=== PATIENT | male | born 1970 | race Two or more races ===

== ENCOUNTER 2016-08-28 12:42 | Emergency (ER) | payer MEDICARE ==
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
[2016-08-28 13:49] LABS: APPEARANCE,URINE CLOUDY; BILIRUBIN,URINE NEGATIVE (NEGATIVE); CALCIUM OXALATE CRYSTALS,URINE FEW /HPF; GLUCOSE, URINE NEGATIVE (NEGATIVE); KETONES,URINE NEGATIVE (NEGATIVE); LEUKOCYTE ESTERASE,URINE MODERATE (NEGATIVE); NITRITE,URINE POSITIVE (NEGATIVE); PROTEIN,URINE NEGATIVE (NEGATIVE)
[2016-08-28] MEDS ORDERED: CEFTRIAXONE INJ 1000 MG VIAL IM ONE (15:11)
[2016-08-28] MEDS ORDERED: LIDOCAINE 1% INJ-PF (10 MG/ML) 30 ML SDV INFIL ONE (15:11)
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
[2016-08-28 16:01] VITALS: BP 167/97
== END 2016-08-28 16:01 | disposition home or self-care (01) ==
LOC: ER 12:42
DX: T83.511A Infection and inflammatory reaction due to indwelling urethral catheter, initial encounter (principal); N39.0 Urinary tract infection, site not specified
CPT/HCPCS: 99283; 96372; 87086; 87088; 81001; 87186; J3490; J0696

== ENCOUNTER 2016-09-20 08:09 | Emergency (ER) | payer MEDICARE ==
[2016-09-20 09:23] LABS: APPEARANCE,URINE CLOUDY; BILIRUBIN,URINE NEGATIVE (NEGATIVE); GLUCOSE, URINE NEGATIVE (NEGATIVE); KETONES,URINE NEGATIVE (NEGATIVE); LEUKOCYTE ESTERASE,URINE SMALL (NEGATIVE); NITRITE,URINE POSITIVE (NEGATIVE); PROTEIN,URINE NEGATIVE (NEGATIVE); URINE SPECIFIC GRAVITY 1.018; UROBILINOGEN,URINE NEGATIVE mg/dL (<2.0)
[2016-09-20] MEDS ORDERED: SULFAMETHOXAZOLE/TRIMETHOPRIM 800-160 MG TABLET PO ONE (09:43)
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
[2016-09-20 10:00] VITALS: BP 120/72
== END 2016-09-20 09:50 | disposition home or self-care (01) ==
LOC: ER 08:09
DX: N39.0 Urinary tract infection, site not specified (principal); R39.198 Other difficulties with micturition; M54.5 Low back pain; R10.2 Pelvic and perineal pain; F17.200 Nicotine dependence, unspecified, uncomplicated
CPT/HCPCS: 99283; 87086; 87088; 81001; 87186; A9270

== ENCOUNTER 2016-12-15 10:48 | Emergency (ER) | payer MEDICARE ==
[2016-12-15] MEDS ORDERED: HYDROCODONE/ACETAMINOPHEN 5-325 MG TABLET PO ONE (11:51)
[2016-12-15] MEDS ORDERED: PHENAZOPYRIDINE HCL 200 MG TABLET PO ONE (11:51)
[2016-12-15] MEDS ORDERED: IBUPROFEN 600 MG TABLET PO ONE (11:51)
[2016-12-15] MEDS ORDERED: SULFAMETHOXAZOLE/TRIMETHOPRIM 800-160 MG TABLET PO ONE (11:51)
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
[2016-12-15 12:46] LABS: APPEARANCE,URINE CLOUDY; BILIRUBIN,URINE NEGATIVE (NEGATIVE); GLUCOSE, URINE NEGATIVE (NEGATIVE); KETONES,URINE NEGATIVE (NEGATIVE); LEUKOCYTE ESTERASE,URINE LARGE (NEGATIVE); NITRITE,URINE POSITIVE (NEGATIVE); PROTEIN,URINE 30 mg/dL (NEGATIVE); URINE SPECIFIC GRAVITY 1.019; UROBILINOGEN,URINE NEGATIVE mg/dL (<2.0)
[2016-12-15 13:11] VITALS: BP 136/91
== END 2016-12-15 13:07 | disposition home or self-care (01) ==
LOC: ER 10:48
DX: N39.0 Urinary tract infection, site not specified (principal); R10.9 Unspecified abdominal pain; Z93.3 Colostomy status; G82.20 Paraplegia, unspecified
CPT/HCPCS: 99284; 87086; 87088; 81001; 87186; A9270 ×4; J3490

== ENCOUNTER 2017-01-09 10:27 | Inpatient (IN) | payer MEDICARE, MEDICAID ==
[2017-01-09] MEDS ORDERED: PHENAZOPYRIDINE HCL 200 MG TABLET PO ONE (11:42)
[2017-01-09] MEDS ORDERED: KETOROLAC TROMETHAMINE INJ/PF 30 MG/1 ML SDV IV ONE (11:42)
[2017-01-09] MEDS ORDERED: CEFTAZIDIME INJ 1 GM VIAL IV ONE (11:42)
[2017-01-09] MEDS ORDERED: MORPHINE SULFATE 10 MG/ML INJ IV ONE (11:42)
[2017-01-09 11:47] LABS: APPEARANCE,URINE SLIGHTLY-CLOUDY; BILIRUBIN,URINE NEGATIVE (NEGATIVE); GLUCOSE, URINE NEGATIVE (NEGATIVE); KETONES,URINE NEGATIVE (NEGATIVE); LEUKOCYTE ESTERASE,URINE LARGE (NEGATIVE); NITRITE,URINE NEGATIVE (NEGATIVE); PROTEIN,URINE NEGATIVE (NEGATIVE); URINE SPECIFIC GRAVITY 1.017
[2017-01-09 13:10] LABS: HEMATOCRIT 20.3 % (37.9-51.0); MEAN CORPUSCULAR VOLUME 70 fl (80-97); RED BLOOD COUNT 2.91 10^6/uL (4.35-5.55); RED CELL DISTRIBUTION WIDTH 21.5 % (11.5-14.0); WHITE BLOOD COUNT 21.7 10^3/uL (4.0-10.5)
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
[2017-01-09 13:31] LABS: ALANINE AMINOTRANSFERASE 28 U/L (21-72); ALBUMIN 3.4 g/dL (3.5-5.0); ALKALINE PHOSPHATASE 66 U/L (38-126); ANION GAP 10 (5-19); ASPARTATE AMINO TRANSFERASE 33 U/L (17-59); BILIRUBIN,DIRECT 0.8 mg/dL (0.0-0.4); BILIRUBIN,TOTAL 1.7 mg/dL (0.2-1.3); BLOOD UREA NITROGEN 15 mg/dL (7-20); CALCIUM 8.1 mg/dL (8.4-10.2); CARBON DIOXIDE 21 mmol/L (22-30); CHLORIDE 106 mmol/L (98-107); CREATININE RESULT 0.74 mg/dL (0.52-1.25); GLUCOSE 101 mg/dL (75-110); POTASSIUM 4.8 mmol/L (3.6-5.0); SODIUM 136.8 mmol/L (137-145); TOTAL PROTEIN 6.3 g/dL (6.3-8.2)
[2017-01-09 13:41] LABS: HEMOGLOBIN 6.1 g/dL (13.5-17.0)
[2017-01-09] MEDS ORDERED: NORMAL SALINE 250 ML IV PRN (13:42)
[2017-01-09] MEDS ORDERED: NORMAL SALINE 1000 ML 1,000 ML IV ONE (13:43)
[2017-01-09 13:59] LABS: ANISOCYTOSIS 2+; BASOPHILS % (MANUAL) 0 % (0-2); EOSINOPHILS % (MANUAL) 3 % (0-6); HYPOCHROMASIA 2+; LYMPHOCYTES % (MANUAL) 32 % (13-45); MICROCYTOSIS 2+; OVALOCYTES 2+; POIKILOCYTOSIS 2+; POLYCHROMASIA SLIGHT; ROULEAUX SLIGHT; SCHISTOCYTES 1+; TOTAL CELLS COUNTED 100; TOXIC GRANULATION SLIGHT; TOXIC VACUOLATION PRESENT
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
[2017-01-09] MEDS: CEFTAZIDIME PENTAHYDRATE 1 GM in DEXTROSE 5%-WATER 50 ML IV SCH (23:39)
[2017-01-10] MEDS: GABAPENTIN 400 MG CAPSULE PO SCH ×5 (00:04→23:27)
[2017-01-10] MEDS: CEFTAZIDIME PENTAHYDRATE 1 GM in DEXTROSE 5%-WATER 50 ML IV SCH ×3 (06:00→21:24)
[2017-01-10 09:15] LABS: HEMATOCRIT 26.2 % (37.9-51.0); HEMOGLOBIN 8.1 g/dL (13.5-17.0); HGB HCT DIFFERENCE -1.9; MEAN CORPUSCULAR HEMOGLOBIN 22.9 pg (27.0-33.4); MEAN CORPUSCULAR HGB CONC 30.9 g/dL (32.0-36.0); RED BLOOD COUNT 3.53 10^6/uL (4.35-5.55); RED CELL DISTRIBUTION WIDTH 25.6 % (11.5-14.0); WHITE BLOOD COUNT 21.8 10^3/uL (4.0-10.5)
[2017-01-10 09:28] LABS: BASOPHILS % (MANUAL) 0 % (0-2); EOSINOPHILS % (MANUAL) 6 % (0-6); LYMPHOCYTES % (MANUAL) 38 % (13-45); NUCLEATED RED BLOOD CELLS 2 /100 WBC (0); TOTAL CELLS COUNTED 100
[2017-01-10 09:29] LABS: HYPOCHROMASIA 2+; MICROCYTOSIS 2+; OVALOCYTES SLIGHT; POIKILOCYTOSIS 2+
[2017-01-10 09:30] LABS: PLATELET CLUMPS PRESENT; POLYCHROMASIA SLIGHT; SCHISTOCYTES SLIGHT; TARGET CELLS SLIGHT; TEAR DROP CELLS SLIGHT
[2017-01-10 09:31] LABS: MEAN CORPUSCULAR VOLUME 74 fl (80-97)
--- NOTE | 2017-01-10 09:46 | PDOC PROGRESS REPORT ---
Subjective Progress Note for:: 01/10/17 Subjective:: No chest pain or difficulty with breathing. No fever or chills. No nausea or vomiting. Denied abdominal pain. Tolerating oral feeding. Patient reported that he is currently on Methadone 120 mg p.o daily and Gabapentin 800 mg p.o qid for chronic pain management. Physical Exam Vital Signs: Temp Pulse Resp BP Pulse Ox 98.5 F 84 16 118/58 L 100 01/09/17 23:43 01/09/17 23:43 01/09/17 23:43 01/09/17 23:43 01/09/17 23:43 Intake & Output 01/09/17 01/10/17 01/11/17 06:59 06:59 06:59 Intake Total 1165 Output Total 360 Balance 805 General appearance: PRESENT: no acute distress, cooperative Head exam: PRESENT: atraumatic, normocephalic Eye exam: PRESENT: conjunctiva pink, EOMI, PERRLA. ABSENT: scleral icterus Respiratory exam: PRESENT: clear to auscultation magda Cardiovascular exam: PRESENT: RRR, +S1, +S2 Vascular exam: PRESENT: normal capillary refill. ABSENT: pallor GI/Abdominal exam: PRESENT: normal bowel sounds, soft, other - functioning colostomy. ABSENT: distended, guarding, mass, organolmegaly, rebound, tenderness Gentrourinary exam: PRESENT: indwelling catheter Neurological exam: PRESENT: other - paraplegic Psychiatric exam: PRESENT: appropriate affect, normal mood. ABSENT: homicidal ideation, suicidal ideation Skin exam: PRESENT: dry, warm Results Laboratory Results: 01/10/17 08:50 Seg Neutrophils % Not Reportable Lymphocytes % Not Reportable Monocytes % Not Reportable Eosinophils % Not Reportable Basophils % Not Reportable Absolute Neutrophils Not Reportable Absolute Lymphocytes Not Reportable Absolute Monocytes Not Reportable Absolute Eosinophils Not Reportable Absolute Basophils Not Reportable Assessment & Plan - Diagnosis (1) UTI (urinary tract infection) Qualifiers: Urinary tract infection type: site unspecified Hematuria presence: with hematuria Qualified Code(s): N39.0 - Urinary tract infection, site not specified Plan: Maintain on IV ceftazidime coverage. Follow up on urine and blood culture findings. (2) Severe anemia Is this a current diagnosis for this admission?: YesPlan: Follow up on post transfusion CBC indices. (3) Paraplegic immobility syndrome Is this a current diagnosis for this admission?: YesPlan: Continue current supportive care. (4) Chronic pain syndrome Plan: Maintain on Gabapentin and Methadone management. Attempted to contact treatment center today but only available 7-9 am on Thursday and Thursday. Patient will receive stated dose of Methadone today and we will contact the center tomorrow morning for further confirmation. (5) Methadone maintenance therapy patient Is this a current diagnosis for this admission?: YesPlan: Attempted to contact treatment center today but only available 7-9 am on Thursday and Thursday. Patient will receive stated dose of Methadone today and we will contact the center tomorrow morning for further confirmation. - Time Time Spent with patient: 25-34 minutes Medications reviewed and adjusted accordingly: Yes Anticipated discharge: Home Within: Other - Inpatient Certification Based on my medical assessment, after consideration of the patient's comorbidities, presenting symptoms, or acuity I expect that the services needed warrant INPATIENT care.: Yes I certify that my determination is in accordance with my understanding of Medicare's requirements for reasonable and necessary INPATIENT services [42 CFR 412.3e].: Yes Medical Necessity: Need For IV Fluids, Need for IV Antibiotics, Risk of Complication if Not Cared For in Hospital Post Hospital Care: D/C Dietary Server Documentation - Plan Summary Plan Summary: Maintain on current medication management. Contacted his pharmacy and local Methadone clinic to confirm his stated dosages. Follow up on pending lab results. Follow up on blood and urine culture findings.
[2017-01-10] MEDS ORDERED: METHADONE HCL PO SCH (10:00)
[2017-01-10] MEDS ORDERED: AZTREONAM 1 GM in DEXTROSE 5%-WATER 50 ML IV SCH (10:00)
[2017-01-10] MEDS: METHADONE HCL 10 MG TABLET PO SCH (10:19)
[2017-01-10] MEDS ORDERED: AZTREONAM 1 GM in DEXTROSE 5%-WATER 50 ML IV ONE (11:00)
[2017-01-10] MEDS: AZTREONAM 1 GM in DEXTROSE 5%-WATER 50 ML IV SCH (17:18)
[2017-01-11] MEDS: AZTREONAM 1 GM in DEXTROSE 5%-WATER 50 ML IV SCH ×3 (04:09→17:27)
[2017-01-11] MEDS: GABAPENTIN 400 MG CAPSULE PO SCH ×4 (05:17→22:45)
[2017-01-11] MEDS: CEFTAZIDIME PENTAHYDRATE 1 GM in DEXTROSE 5%-WATER 50 ML IV SCH ×3 (05:17→21:25)
[2017-01-11] MEDS: METHADONE HCL 10 MG TABLET PO SCH (10:07)
--- NOTE | 2017-01-11 11:54 | PDOC PROGRESS REPORT ---
Subjective Progress Note for:: 01/11/17 Subjective:: No chest pain or difficulty with breathing. No fever or chills. No nausea or vomiting. Denied abdominal pain. Tolerating oral feeding. Physical Exam Vital Signs: Temp Pulse Resp BP Pulse Ox 98.3 F 88 20 110/65 97 01/11/17 07:43 01/11/17 07:43 01/11/17 07:43 01/11/17 07:43 01/11/17 07:43 Intake & Output 01/10/17 01/11/17 01/12/17 06:59 06:59 06:59 Intake Total 1165 1370 Output Total 360 1400 Balance 805 -30 Physical Exam: General appearance: PRESENT: no acute distress, cooperative Head exam: PRESENT: atraumatic, normocephalic Eye exam: PRESENT: conjunctiva pink, EOMI, PERRLA. ABSENT: scleral icterus Respiratory exam: PRESENT: clear to auscultation magda Cardiovascular exam: PRESENT: RRR, +S1, +S2 Vascular exam: PRESENT: normal capillary refill. ABSENT: pallor GI/Abdominal exam: PRESENT: normal bowel sounds, soft, other - functioning colostomy. ABSENT: distended, guarding, mass, organolmegaly, rebound, tenderness Gentrourinary exam: PRESENT: indwelling catheter Neurological exam: PRESENT: other - paraplegic Psychiatric exam: PRESENT: appropriate affect, normal mood. ABSENT: homicidal ideation, suicidal ideation Skin exam: PRESENT: dry, warm Results Laboratory Results: 01/10/17 08:50 Assessment & Plan - Diagnosis (1) UTI (urinary tract infection) Qualifiers: Urinary tract infection type: site unspecified Hematuria presence: with hematuria Qualified Code(s): N39.0 - Urinary tract infection, site not specified (2) Severe anemia Is this a current diagnosis for this admission?: Yes (3) Paraplegic immobility syndrome Is this a current diagnosis for this admission?: Yes (5) Methadone maintenance therapy patient Is this a current diagnosis for this admission?: Yes - Time Time Spent with patient: 25-34 minutes Medications reviewed and adjusted accordingly: Yes Anticipated discharge: Home Within: Other - Inpatient Certification Medical Necessity: Need Close Monitoring Due to Risk of Patient Decompensation, Need for IV Antibiotics, Risk of Complication if Not Cared For in Hospital Post Hospital Care: D/C Central Supply Technician Supervisor Documentation - Plan Summary Plan Summary: See covering attending orders.
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
[2017-01-12] MEDS: AZTREONAM 1 GM in DEXTROSE 5%-WATER 50 ML IV SCH ×3 (02:49→18:17)
[2017-01-12] MEDS: CEFTAZIDIME PENTAHYDRATE 1 GM in DEXTROSE 5%-WATER 50 ML IV SCH ×3 (05:09→21:22)
[2017-01-12] MEDS: GABAPENTIN 400 MG CAPSULE PO SCH ×4 (05:09→23:07)
[2017-01-12 05:30] LABS: HEMATOCRIT 23.5 % (37.9-51.0); HGB HCT DIFFERENCE -1.3; MEAN CORPUSCULAR HEMOGLOBIN 23.8 pg (27.0-33.4); MEAN CORPUSCULAR HGB CONC 31.6 g/dL (32.0-36.0); MEAN CORPUSCULAR VOLUME 75 fl (80-97); RED BLOOD COUNT 3.12 10^6/uL (4.35-5.55); RED CELL DISTRIBUTION WIDTH 26.2 % (11.5-14.0); WHITE BLOOD COUNT 22.7 10^3/uL (4.0-10.5)
[2017-01-12 05:52] LABS: HEMOGLOBIN 7.4 g/dL (13.5-17.0)
[2017-01-12 05:55] LABS: ALANINE AMINOTRANSFERASE 30 U/L (21-72); ALBUMIN 2.9 g/dL (3.5-5.0); ALKALINE PHOSPHATASE 75 U/L (38-126); ANION GAP 8 (5-19); ASPARTATE AMINO TRANSFERASE 44 U/L (17-59); BILIRUBIN,DIRECT 0.7 mg/dL (0.0-0.4); BILIRUBIN,TOTAL 1.2 mg/dL (0.2-1.3); BLOOD UREA NITROGEN 14 mg/dL (7-20); CALCIUM 8.4 mg/dL (8.4-10.2); CARBON DIOXIDE 23 mmol/L (22-30); CHLORIDE 107 mmol/L (98-107); CREATININE RESULT 0.63 mg/dL (0.52-1.25); GLUCOSE 90 mg/dL (75-110); POTASSIUM 4.7 mmol/L (3.6-5.0); SODIUM 138.1 mmol/L (137-145); TOTAL PROTEIN 5.8 g/dL (6.3-8.2)
[2017-01-12 06:03] LABS: BASOPHILS % (MANUAL) 0 % (0-2); EOSINOPHILS % (MANUAL) 7 % (0-6); LYMPHOCYTES % (MANUAL) 30 % (13-45); TOTAL CELLS COUNTED 100
[2017-01-12 06:25] LABS: ACANTHOCYTES SLIGHT; ANISOCYTOSIS 3+; HYPOCHROMASIA 2+; MICROCYTOSIS 1+; OVALOCYTES 1+; POIKILOCYTOSIS 3+; POLYCHROMASIA 1+
[2017-01-12] MEDS: METHADONE HCL 10 MG TABLET PO SCH (09:14)
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
--- NOTE | 2017-01-12 20:58 | PDOC PROGRESS REPORT ---
Subjective Progress Note for:: 01/12/17 Subjective:: Patient was seen by the bedside is sustained a fracture of the left femur, he was seen by orthopedic the plan is to manage conservatively Physical Exam Vital Signs: Temp Pulse Resp BP Pulse Ox 99.0 F 82 18 109/66 100 01/12/17 17:10 01/12/17 17:10 01/12/17 17:10 01/12/17 17:10 01/12/17 17:10 Intake & Output 01/11/17 01/12/17 01/13/17 06:59 06:59 06:59 Intake Total 1370 2160 1810 Output Total 1400 1100 900 Balance -30 1060 910 Weight 185 kg 84 kg General appearance: PRESENT: no acute distress Eye exam: PRESENT: PERRLA Respiratory exam: PRESENT: clear to auscultation magda Cardiovascular exam: PRESENT: +S1, +S2 GI/Abdominal exam: PRESENT: soft Neurological exam: PRESENT: alert, CN II-XII grossly intact Results Laboratory Results: 01/12/17 05:07 01/12/17 05:07 01/12/17 01/12/17 05:07 05:07 WBC 22.7 H RBC 3.12 L Hgb 7.4 L Hct 23.5 L MCV 75 L MCH 23.8 L MCHC 31.6 L RDW 26.2 H Plt Count 531 H Seg Neutrophils % Not Reportable Lymphocytes % Not Reportable Monocytes % Not Reportable Eosinophils % Not Reportable Basophils % Not Reportable Absolute Neutrophils Not Reportable Absolute Lymphocytes Not Reportable Absolute Monocytes Not Reportable Absolute Eosinophils Not Reportable Absolute Basophils Not Reportable Sodium 138.1 Potassium 4.7 Chloride 107 Carbon Dioxide 23 Anion Gap 8 BUN 14 Creatinine 0.63 Est GFR ( Amer) > 60 Est GFR (Non-Af Amer) > 60 Glucose 90 Calcium 8.4 Total Bilirubin 1.2 AST 44 ALT 30 Alkaline Phosphatase 75 Total Protein 5.8 L Albumin 2.9 L Impressions: Femur X-Ray 01/11/17 00:00 IMPRESSION: Fracture of the distal femur. Assessment & Plan - Diagnosis (1) Urinary tract infection Qualifiers: Urinary tract infection type: acute cystitis Hematuria presence: with hematuria Qualified Code(s): N30.01 - Acute cystitis with hematuria Is this a current diagnosis for this admission?: Yes (2) Severe anemia Is this a current diagnosis for this admission?: Yes - Plan Summary Plan Summary: Continue treatment
[2017-01-13] MEDS: AZTREONAM 1 GM in DEXTROSE 5%-WATER 50 ML IV SCH ×3 (01:13→17:56)
[2017-01-13] MEDS: CEFTAZIDIME PENTAHYDRATE 1 GM in DEXTROSE 5%-WATER 50 ML IV SCH ×3 (05:08→21:54)
[2017-01-13] MEDS: GABAPENTIN 400 MG CAPSULE PO SCH ×4 (05:08→23:20)
[2017-01-13] MEDS: METHADONE HCL 10 MG TABLET PO SCH (10:33)
--- NOTE | 2017-01-13 21:54 | PDOC PROGRESS REPORT ---
Subjective Progress Note for:: 01/13/17 Subjective:: Patient was seen by the bedside, he wants to go home tomorrow, the urine culture grew polymicrobial organisms, Proteus and enterococcus specie. The Proteus is not of significant colony count, the enterococcus is of significant colony count. Physical Exam Vital Signs: Temp Pulse Resp BP Pulse Ox 98.4 F 86 16 122/64 97 01/13/17 19:47 01/13/17 19:47 01/13/17 19:47 01/13/17 19:47 01/13/17 19:47 Intake & Output 01/12/17 01/13/17 01/14/17 06:59 06:59 06:59 Intake Total 2160 3250 1000 Output Total 1100 1800 600 Balance 1060 1450 400 Weight 185 kg 84 kg General appearance: PRESENT: no acute distress Eye exam: PRESENT: PERRLA Respiratory exam: PRESENT: clear to auscultation magda Cardiovascular exam: PRESENT: +S1, +S2 GI/Abdominal exam: PRESENT: soft Results Laboratory Results: 01/12/17 05:07 01/12/17 05:07 Impressions: Femur X-Ray 01/11/17 00:00 IMPRESSION: Fracture of the distal femur. Assessment & Plan - Diagnosis (1) Urinary tract infection Qualifiers: Urinary tract infection type: acute cystitis Hematuria presence: with hematuria Qualified Code(s): N30.01 - Acute cystitis with hematuria Is this a current diagnosis for this admission?: Yes (2) Severe anemia Is this a current diagnosis for this admission?: Yes (3) Chronic pain syndrome Is this a current diagnosis for this admission?: Yes (4) Closed fracture of left distal femur Qualifiers: Encounter type: initial encounter Is this a current diagnosis for this admission?: Yes (5) Methadone maintenance therapy patient Is this a current diagnosis for this admission?: Yes (6) Paraplegic immobility syndrome Is this a current diagnosis for this admission?: Yes
[2017-01-14] MEDS: AZTREONAM 1 GM in DEXTROSE 5%-WATER 50 ML IV SCH ×2 (02:09→09:24)
[2017-01-14] MEDS: GABAPENTIN 400 MG CAPSULE PO SCH ×2 (05:26→13:58)
[2017-01-14] MEDS: CEFTAZIDIME PENTAHYDRATE 1 GM in DEXTROSE 5%-WATER 50 ML IV SCH ×2 (05:26→13:59)
[2017-01-14] MEDS: METHADONE HCL 10 MG TABLET PO SCH (09:25)
[2017-01-14 14:20] LABS: ABSOLUTE BASOPHILS # (AUTO) 0.1 10^3/uL (0.0-0.2); ABSOLUTE LYMPHOCYTES (AUTO) 5.9 10^3/uL (0.5-4.7); ABSOLUTE MONOCYTES (AUTO) 1.7 10^3/uL (0.1-1.4); ABSOLUTE NEUT (AUTO) 9.4 10^3/uL (1.7-8.2); BASOPHILS % (AUTO) 0.7 % (0-2); EOSINOPHILS % (AUTO) 5.5 % (0-6); HEMATOCRIT 28.3 % (37.9-51.0); HEMOGLOBIN 8.9 g/dL (13.5-17.0); HGB HCT DIFFERENCE -1.6; LYMPHOCYTES % (AUTO) 32.5 % (13-45); MEAN CORPUSCULAR HEMOGLOBIN 24.5 pg (27.0-33.4); MEAN CORPUSCULAR HGB CONC 31.4 g/dL (32.0-36.0); MEAN CORPUSCULAR VOLUME 78 fl (80-97); MONOCYTES % (AUTO) 9.3 % (3-13); RED BLOOD COUNT 3.64 10^6/uL (4.35-5.55); RED CELL DISTRIBUTION WIDTH 26.5 % (11.5-14.0); WHITE BLOOD COUNT 18.1 10^3/uL (4.0-10.5)
[2017-01-14 14:32] LABS: ALANINE AMINOTRANSFERASE 35 U/L (21-72); ALBUMIN 3.2 g/dL (3.5-5.0); ALKALINE PHOSPHATASE 94 U/L (38-126); ANION GAP 13 (5-19); ASPARTATE AMINO TRANSFERASE 49 U/L (17-59); BILIRUBIN,DIRECT 0.7 mg/dL (0.0-0.4); BILIRUBIN,TOTAL 1.1 mg/dL (0.2-1.3); BLOOD UREA NITROGEN 15 mg/dL (7-20); CALCIUM 8.7 mg/dL (8.4-10.2); CARBON DIOXIDE 24 mmol/L (22-30); CHLORIDE 103 mmol/L (98-107); CREATININE RESULT 0.64 mg/dL (0.52-1.25); GLUCOSE 117 mg/dL (75-110); POTASSIUM 4.9 mmol/L (3.6-5.0); SODIUM 139.9 mmol/L (137-145); TOTAL PROTEIN 6.2 g/dL (6.3-8.2)
[2017-01-14 14:47] LABS: ANISOCYTOSIS 3+; HYPOCHROMASIA SLIGHT; MICROCYTOSIS SLIGHT; OVALOCYTES 1+; POIKILOCYTOSIS 1+; POLYCHROMASIA SLIGHT
[2017-01-14 14:48] LABS: TARGET CELLS SLIGHT
[2017-01-14 16:09] VITALS: BP 137/76
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
== END 2017-01-14 16:31 | disposition home or self-care (01) | DRG 690 ==
LOC: ER 10:27 → EH 13:51 → UNDOADMIN 13:51 → 5 15:05 → EH 15:05 → 5 15:44
PROVIDERS: ADMIT Internal Medicine; ATTEND Internal Medicine
PROC: 30233N1 Transfusion of Nonautologous Red Blood Cells into Peripheral Vein, Percutaneous Approach (ICD-10-PCS; principal; 2017-01-09)
DX: N30.01 Acute cystitis with hematuria (principal); S72.402A Unspecified fracture of lower end of left femur, initial encounter for closed fracture; G82.20 Paraplegia, unspecified; D62 Acute posthemorrhagic anemia; G89.4 Chronic pain syndrome; M85.80 Other specified disorders of bone density and structure, unspecified site; B95.2 Enterococcus as the cause of diseases classified elsewhere; W01.0XXA Fall on same level from slipping, tripping and stumbling without subsequent striking against object, initial encounter; Y92.009 Unspecified place in unspecified non-institutional (private) residence as the place of occurrence of the external cause; Z79.891 Long term (current) use of opiate analgesic; Z99.3 Dependence on wheelchair; Z93.3 Colostomy status; Z87.891 Personal history of nicotine dependence
CPT/HCPCS: 36415; 36430; 80053; 81001; 83605; 85025; 86850; 86900; 86901; 86920; 87040; 87086; 87088; 87186; 99284; J0713; J1885; J2270; J3490; J7030; J7050; L1830; P9016

== ENCOUNTER 2017-03-24 15:44 | Inpatient (IN) | payer MEDICARE, MEDICAID ==
[2017-03-24] MEDS ORDERED: PIPERACILLIN/TAZOBACTAM 4.5 GM VIAL IV ONE (17:31)
[2017-03-24] MEDS ORDERED: NORMAL SALINE 1000 ML 1,000 ML IV ONE (17:31)
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
[2017-03-24 18:09] LABS: ABSOLUTE BASOPHILS # (AUTO) 0.1 10^3/uL (0.0-0.2); ABSOLUTE EOSINOPHILS # (AUTO) 0.3 10^3/uL (0.0-0.6); ABSOLUTE LYMPHOCYTES (AUTO) 4.8 10^3/uL (0.5-4.7); ABSOLUTE MONOCYTES (AUTO) 1.7 10^3/uL (0.1-1.4); BASOPHILS % (AUTO) 0.6 % (0-2); EOSINOPHILS % (AUTO) 1.7 % (0-6); HEMATOCRIT 28.5 % (37.9-51.0); HEMOGLOBIN 8.9 g/dL (13.5-17.0); HGB HCT DIFFERENCE -1.8; LYMPHOCYTES % (AUTO) 24.3 % (13-45); MEAN CORPUSCULAR HEMOGLOBIN 26.5 pg (27.0-33.4); MEAN CORPUSCULAR HGB CONC 31.4 g/dL (32.0-36.0); MEAN CORPUSCULAR VOLUME 84 fl (80-97); MONOCYTES % (AUTO) 8.3 % (3-13); RED BLOOD COUNT 3.38 10^6/uL (4.35-5.55); RED CELL DISTRIBUTION WIDTH 20.7 % (11.5-14.0); SEGMENTED NEUTROPHILS % (AUTO) 65.1 % (42-78); WHITE BLOOD COUNT 19.9 10^3/uL (4.0-10.5)
[2017-03-24] MEDS ORDERED: VANCOMYCIN HCL INJ 1000 MG VIAL IV ONE (18:16)
[2017-03-24 18:25] LABS: ALANINE AMINOTRANSFERASE 52 U/L (21-72); ALBUMIN 3.4 g/dL (3.5-5.0); ALKALINE PHOSPHATASE 145 U/L (38-126); ANION GAP 13 (5-19); ASPARTATE AMINO TRANSFERASE 109 U/L (17-59); BILIRUBIN,TOTAL 1.4 mg/dL (0.2-1.3); BLOOD UREA NITROGEN 17 mg/dL (7-20); CALCIUM 8.7 mg/dL (8.4-10.2); CARBON DIOXIDE 23 mmol/L (22-30); CHLORIDE 107 mmol/L (98-107); CREATININE RESULT 0.63 mg/dL (0.52-1.25); GLUCOSE 80 mg/dL (75-110); POTASSIUM 4.6 mmol/L (3.6-5.0); SODIUM 142.9 mmol/L (137-145); TOTAL PROTEIN 7.8 g/dL (6.3-8.2)
[2017-03-24] MEDS ORDERED: ACETAMINOPHEN SUSP 160 MG/5 ML ORAL SYRING PO ONE (18:30)
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
--- NOTE | 2017-03-24 19:04 | RADIOLOGY REPORT (SQ) ---
EXAM DESCRIPTION: FEMUR LEFT COMPLETED DATE/TIME: 03/24/2017 6:53 pm REASON FOR STUDY: osteo, prior femur fracture COMPARISON: 01/11/2017 NUMBER OF VIEWS: Two views. TECHNIQUE: Two radiographic images acquired of the left femur to include hip and knee in at least on e projection. LIMITATIONS: None. FINDINGS: MINERALIZATION: Osteopenia. BONES: There is a comminuted fracture of the distal femur. There is soft tissue calcification around the fracture, but no bridging callus is seen. Considerable bone resorption is noted the distal frag ment. SOFT TISSUES: No obvious swelling or foreign body. OTHER: No other significant finding. IMPRESSION: Fracture of the distal femur as described. TECHNICAL DOCUMENTATION: JOB ID: [id number] [employer]- All Rights Reserved
--- NOTE | 2017-03-24 19:07 | RADIOLOGY REPORT (SQ) ---
EXAM DESCRIPTION: TIBIA FIBULA LEFT COMPLETED DATE/TIME: 03/24/2017 6:53 pm REASON FOR STUDY: osteo, prior femur fracture COMPARISON: None. NUMBER OF VIEWS: Two views. TECHNIQUE: Two radiographic images acquired of the left tibia and fibula to include the knee and ank le in at least one projection. LIMITATIONS: None. FINDINGS: MINERALIZATION: Osteopenia. BONES: No acute fracture or dislocation. No worrisome bone lesions. SOFT TISSUES: Extremely large soft tissue defect in the left lower extremity. No radiopaque foreign body. OTHER: No other significant finding. IMPRESSION: No acute fracture or radiopaque foreign body.No worrisome bone lesions. TECHNICAL DOCUMENTATION: JOB ID: [id number] [employer]- All Rights Reserved
--- NOTE | 2017-03-24 19:08 | RADIOLOGY REPORT (SQ) ---
EXAM DESCRIPTION: CHEST SINGLE VIEW COMPLETED DATE/TIME: 03/24/2017 6:53 pm REASON FOR STUDY: preop COMPARISON: 01/29/2014 EXAM PARAMETERS: NUMBER OF VIEWS: One view. TECHNIQUE: Single frontal radiographic view of the chest acquired. RADIATION DOSE: NA LIMITATIONS: None. FINDINGS: LUNGS AND PLEURA: No acute opacities, masses or pneumothorax. No pleural effusion. MEDIASTINUM AND HILAR STRUCTURES: No masses. Contour normal. HEART AND VASCULAR STRUCTURES: Heart normal in size. Normal vasculature. BONES: No acute findings. HARDWARE: None in the chest. OTHER: No other significant finding. IMPRESSION: NO ACUTE RADIOGRAPHIC FINDING IN THE CHEST. TECHNICAL DOCUMENTATION: JOB ID: [id number]
[2017-03-24 20:18] LABS: APPEARANCE,URINE TURBID; BILIRUBIN,URINE NEGATIVE (NEGATIVE); GLUCOSE, URINE NEGATIVE (NEGATIVE); KETONES,URINE NEGATIVE (NEGATIVE); LEUKOCYTE ESTERASE,URINE MODERATE (NEGATIVE); NITRITE,URINE NEGATIVE (NEGATIVE); PROTEIN,URINE 30 mg/dL (NEGATIVE); URINE SPECIFIC GRAVITY 1.025
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
[2017-03-24 21:18] LABS: VENOUS BLOOD PCO2 35.2 mmHg (35-63); VENOUS BLOOD PH 7.41 (7.30-7.42)
[2017-03-24] MEDS ORDERED: VANCOMYCIN HCL 0 MG in DEXTROSE 5%-WATER 250 ML IV NR (22:00)
[2017-03-24] MEDS ORDERED: GABAPENTIN 400 MG CAPSULE PO ONE (22:00)
[2017-03-24] MEDS ORDERED: METHADONE HCL PO SCH (22:00)
[2017-03-24 22:08] LABS: LIPASE 114.3 U/L (23-300); MAGNESIUM 1.8 mg/dL (1.6-2.3); PHOSPHORUS 3.5 mg/dL (2.5-4.5)
[2017-03-24 22:16] LABS: PROTHROMBIN TIME 16.4 SEC (11.4-15.4)
[2017-03-24 22:17] LABS: PARTIAL THROMBOPLASTIN TIME 43.7 SEC (23.5-35.8)
[2017-03-24 22:37] LABS: THYROID STIMULATING HORMONE 0.51 uIU/mL (0.47-4.68)
[2017-03-24 23:20] LABS: URINE BARBITURATES SCREEN NEGATIVE; URINE METHADONE SCREEN UNCONFIRMED POSITIVE; URINE OPIATES LOW NEGATIVE; URINE PHENCYCLIDINE SCREEN NEGATIVE
[2017-03-24 23:28] LABS: TROPONIN I < 0.012 ng/mL
[2017-03-25 00:01] LABS: ARTERIAL BLOOD BASE EXCESS -1.6 mmol/L; ARTERIAL BLOOD O2 SATURATION 94.6 % (94-98)
[2017-03-25] MEDS: PIPERACILLIN SODIUM/TAZOBACTAM 3.375 GM in NORMAL SALINE 100 ML IV SCH ×4 (02:14→18:30)
[2017-03-25] MEDS ORDERED: INFLUENZA ADLT QUAD (36MOS+) 2017-18 VAC 0.5 ML SYR IM PRN (03:59)
[2017-03-25] MEDS: NORMAL SALINE 1000 ML 1,000 ML IV PRN (04:17)
[2017-03-25] MEDS: VANCOMYCIN HCL 1,500 MG in DEXTROSE 5%-WATER 250 ML IV SCH ×3 (05:00→23:11)
[2017-03-25 05:04] LABS: ABSOLUTE EOSINOPHILS # (AUTO) 0.3 10^3/uL (0.0-0.6); ABSOLUTE LYMPHOCYTES (AUTO) 3.3 10^3/uL (0.5-4.7); ABSOLUTE MONOCYTES (AUTO) 1.8 10^3/uL (0.1-1.4); ABSOLUTE NEUT (AUTO) 11.4 10^3/uL (1.7-8.2); BASOPHILS % (AUTO) 0.2 % (0-2); EOSINOPHILS % (AUTO) 1.8 % (0-6); HEMATOCRIT 27.3 % (37.9-51.0); HEMOGLOBIN 8.4 g/dL (13.5-17.0); HGB HCT DIFFERENCE -2.1; LYMPHOCYTES % (AUTO) 19.8 % (13-45); MEAN CORPUSCULAR HEMOGLOBIN 26.1 pg (27.0-33.4); MEAN CORPUSCULAR HGB CONC 30.9 g/dL (32.0-36.0); MEAN CORPUSCULAR VOLUME 84 fl (80-97); MONOCYTES % (AUTO) 10.6 % (3-13); RED BLOOD COUNT 3.23 10^6/uL (4.35-5.55); RED CELL DISTRIBUTION WIDTH 20.4 % (11.5-14.0); SEGMENTED NEUTROPHILS % (AUTO) 67.6 % (42-78); WHITE BLOOD COUNT 16.9 10^3/uL (4.0-10.5)
[2017-03-25 05:23] LABS: ALANINE AMINOTRANSFERASE 52 U/L (21-72); ALKALINE PHOSPHATASE 136 U/L (38-126); ANION GAP 17 (5-19); ASPARTATE AMINO TRANSFERASE 91 U/L (17-59); BILIRUBIN,TOTAL 1.3 mg/dL (0.2-1.3); BLOOD UREA NITROGEN 16 mg/dL (7-20); CALCIUM 8.5 mg/dL (8.4-10.2); CARBON DIOXIDE 20 mmol/L (22-30); CHLORIDE 110 mmol/L (98-107); CHOLESTEROL 87.81 mg/dL (0-200); CREATININE RESULT 0.59 mg/dL (0.52-1.25); Direct HDL 11 mg/dL (>40); GLUCOSE 79 mg/dL (75-110); POTASSIUM 4.3 mmol/L (3.6-5.0); TOTAL PROTEIN 7.1 g/dL (6.3-8.2); TRIGLYCERIDES 102 mg/dL (<150)
[2017-03-25 05:33] LABS: DIRECT LDL 61 mg/dL (<100)
[2017-03-25 05:44] LABS: TROPONIN I < 0.012 ng/mL
[2017-03-25] MEDS: GABAPENTIN 400 MG CAPSULE PO SCH ×3 (06:28→18:30)
[2017-03-25] MEDS ORDERED: PIPERACILLIN/TAZOBACTAM 3.375 GM VIAL IV ONE (06:34)
[2017-03-25] MEDS ORDERED: NORMAL SALINE 250 ML IV PRN (06:46)
--- NOTE | 2017-03-25 08:06 | EKG REPORT ---
SEVERITY:- ABNORMAL ECG - SINUS RHYTHM MULTIFORM VENTRICULAR PREMATURE COMPLEXES BORDERLINE T ABNORMALITIES, ANTERIOR LEADS : Confirmed by: Carlos Grullon MD 25-Mar-2017 08:05:26
[2017-03-25] MEDS: METHADONE HCL 10 MG TABLET PO SCH (09:30)
[2017-03-25] MEDS ORDERED: ENOXAPARIN SODIUM INJ 40 MG/0.4 ML DISP.SYRIN SUBCUT SCH (10:00)
[2017-03-25 11:34] LABS: TROPONIN I < 0.012 ng/mL
--- NOTE | 2017-03-25 11:48 | PDOC PROGRESS REPORT ---
Subjective Progress Note for:: 03/25/17 Subjective:: No complaints. Tolerating blood transfusions well. Physical Exam Vital Signs: Temp Pulse Resp BP Pulse Ox 99.0 F 86 18 119/63 98 03/25/17 09:53 03/25/17 09:53 03/25/17 09:53 03/25/17 09:53 03/25/17 09:53 Intake & Output 03/24/17 03/25/17 03/26/17 06:59 06:59 06:59 Intake Total 315 0 Output Total 100 Balance 215 0 Weight 90.1 kg General appearance: PRESENT: no acute distress, cooperative Respiratory exam: PRESENT: clear to auscultation magda Cardiovascular exam: PRESENT: RRR Extremities exam: PRESENT: other - Left lower extremity with widespread tissue necrosis with exposed bone no erythema at the thigh nor at the knee nor immediately below the knee. No skin breaks on the thigh. Results Laboratory Results: 03/25/17 03:57 03/25/17 03:57 03/24/17 03/24/17 03/25/17 21:55 23:40 03:57 WBC 16.9 H RBC 3.23 L Hgb 8.4 L Hct 27.3 L MCV 84 MCH 26.1 L MCHC 30.9 L RDW 20.4 H Plt Count 652 H Seg Neutrophils % 67.6 Lymphocytes % 19.8 Monocytes % 10.6 Eosinophils % 1.8 Basophils % 0.2 Absolute Neutrophils 11.4 H Absolute Lymphocytes 3.3 Absolute Monocytes 1.8 H Absolute Eosinophils 0.3 Absolute Basophils 0.0 Carbonic Acid 1.09 HCO3/H2CO3 Ratio 20:1 ABG pH 7.42 ABG pCO2 36.2 ABG pO2 70.7 L ABG HCO3 22.7 ABG O2 Saturation 94.6 ABG Base Excess -1.6 FiO2 21% Sodium Potassium Chloride Carbon Dioxide Anion Gap BUN Creatinine Est GFR ( Amer) Est GFR (Non-Af Amer) Glucose Calcium Total Bilirubin AST ALT Alkaline Phosphatase Ammonia 22.0 Total Protein Albumin Triglycerides Cholesterol LDL Cholesterol Direct VLDL Cholesterol HDL Cholesterol 03/25/17 03:57 WBC RBC Hgb Hct MCV MCH MCHC RDW Plt Count Seg Neutrophils % Lymphocytes % Monocytes % Eosinophils % Basophils % Absolute Neutrophils Absolute Lymphocytes Absolute Monocytes Absolute Eosinophils Absolute Basophils Carbonic Acid HCO3/H2CO3 Ratio ABG pH ABG pCO2 ABG pO2 ABG HCO3 ABG O2 Saturation ABG Base Excess FiO2 Sodium 147.0 H Potassium 4.3 Chloride 110 H Carbon Dioxide 20 L Anion Gap 17 BUN 16 Creatinine 0.59 Est GFR ( Amer) > 60 Est GFR (Non-Af Amer) > 60 Glucose 79 Calcium 8.5 Total Bilirubin 1.3 AST 91 H ALT 52 Alkaline Phosphatase 136 H Ammonia Total Protein 7.1 Albumin 3.0 L Triglycerides 102 Cholesterol 87.81 LDL Cholesterol Direct 61 VLDL Cholesterol 20.0 HDL Cholesterol 11 L 03/25/17 03/25/17 03/25/17 03:57 03:57 10:15 Creatine Kinase 42 L 50 L CK-MB (CK-2) 1.20 Troponin I < 0.012 03/25/17 10:15 Creatine Kinase CK-MB (CK-2) 1.00 Troponin I < 0.012 Impressions: Femur X-Ray 03/24/17 18:15 IMPRESSION: Fracture of the distal femur as described. Tibia/Fibula X-Ray 03/24/17 18:15 IMPRESSION: No acute fracture or radiopaque foreign body.No worrisome bone lesions. Chest X-Ray 03/24/17 18:27 IMPRESSION: NO ACUTE RADIOGRAPHIC FINDING IN THE CHEST. Assessment & Plan - Diagnosis (1) leg gangrene Is this a current diagnosis for this admission?: Yes Plan: Involving the lower left leg. In a paraplegic patient. Patient also has a distal femur fracture. The best option for this patient is an [id number] amputation with amputation above the level of the femur fracture. I have discussed with the patient the risk and benefits of the procedure including risk of poor wound healing, infection, bleeding. Patient understands and agrees to proceed.
[2017-03-25] MEDS ORDERED: PROPOFOL INJ 200 MG/20 ML VIAL IV ONE (13:01)
[2017-03-25] MEDS ORDERED: MIDAZOLAM 2 MG/2 ML INJ ONE (13:01)
[2017-03-25] MEDS ORDERED: FENTANYL CITRATE INJ/PF 100 MCG/2 ML AMPUL ONE (13:01)
[2017-03-25] MEDS ORDERED: MORPHINE SULFATE 10 MG/ML INJ ONE ×2 (13:02→13:41)
[2017-03-25] MEDS ORDERED: MORPHINE SULFATE 10 MG/ML INJ IV PRN (13:39)
[2017-03-25] MEDS ORDERED: DIPHENHYDRAMINE HCL 50 MG/ML VIAL IV PRN (13:39)
[2017-03-25] MEDS ORDERED: PROMETHAZINE HCL INJ 25 MG/1 ML VIAL IV PRN (13:39)
[2017-03-25] MEDS ORDERED: FENTANYL CITRATE INJ/PF 100 MCG/2 ML AMPUL IV PRN ×3 (13:39)
[2017-03-25] MEDS ORDERED: MEPERIDINE HCL/PF INJ 25 MG/1 ML DISP.SYRIN IV PRN (13:39)
[2017-03-25] MEDS ORDERED: FENTANYL CITRATE INJ/PF 250 MCG/5 ML AMPULE ONE (13:41)
[2017-03-25] MEDS ORDERED: BUPIVACAINE HCL 0.25 % INJ/PF (2.5 MG/1 ML) 30 ML VIAL ONE (14:00)
[2017-03-25 15:02] LABS: HEMATOCRIT 20.5 % (37.9-51.0); MEAN CORPUSCULAR HEMOGLOBIN 26.9 pg (27.0-33.4); MEAN CORPUSCULAR HGB CONC 31.6 g/dL (32.0-36.0); MEAN CORPUSCULAR VOLUME 85 fl (80-97); RED BLOOD COUNT 2.41 10^6/uL (4.35-5.55); RED CELL DISTRIBUTION WIDTH 19.4 % (11.5-14.0); WHITE BLOOD COUNT 15.9 10^3/uL (4.0-10.5)
[2017-03-25 15:09] LABS: HEMOGLOBIN 6.5 g/dL (13.5-17.0)
[2017-03-25] MEDS ORDERED: ONDANSETRON HCL INJ/PF 4 MG/2 ML SDV IV PRN (17:20)
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
--- NOTE | 2017-03-25 17:46 | PDOC PROGRESS REPORT ---
Subjective Progress Note for:: 03/25/17 Subjective:: Patient had left AKA today, is back in the room, he has anemia will require blood transfusion Physical Exam Vital Signs: Temp Pulse Resp BP Pulse Ox 99.0 F 86 18 117/86 H 98 03/25/17 12:59 03/25/17 12:59 03/25/17 12:59 03/25/17 12:59 03/25/17 12:59 Intake & Output 03/24/17 03/25/17 03/26/17 06:59 06:59 06:59 Intake Total 315 2200 Output Total 100 1660 Balance 215 540 Weight 90.1 kg General appearance: PRESENT: no acute distress Eye exam: PRESENT: PERRLA Respiratory exam: PRESENT: clear to auscultation magda Cardiovascular exam: PRESENT: +S1, +S2 GI/Abdominal exam: PRESENT: soft Extremities exam: PRESENT: left AKA Neurological exam: PRESENT: alert, CN II-XII grossly intact Results Laboratory Results: 03/25/17 03:57 03/24/17 03/24/17 03/25/17 21:55 23:40 03:57 WBC 16.9 H RBC 3.23 L Hgb 8.4 L Hct 27.3 L MCV 84 MCH 26.1 L MCHC 30.9 L RDW 20.4 H Plt Count 652 H Seg Neutrophils % 67.6 Lymphocytes % 19.8 Monocytes % 10.6 Eosinophils % 1.8 Basophils % 0.2 Absolute Neutrophils 11.4 H Absolute Lymphocytes 3.3 Absolute Monocytes 1.8 H Absolute Eosinophils 0.3 Absolute Basophils 0.0 Carbonic Acid 1.09 HCO3/H2CO3 Ratio 20:1 ABG pH 7.42 ABG pCO2 36.2 ABG pO2 70.7 L ABG HCO3 22.7 ABG O2 Saturation 94.6 ABG Base Excess -1.6 FiO2 21% Sodium Potassium Chloride Carbon Dioxide Anion Gap BUN Creatinine Est GFR ( Amer) Est GFR (Non-Af Amer) Glucose Calcium Total Bilirubin AST ALT Alkaline Phosphatase Ammonia 22.0 Total Protein Albumin Triglycerides Cholesterol LDL Cholesterol Direct VLDL Cholesterol HDL Cholesterol 03/25/17 03/25/17 03:57 14:51 WBC 15.9 H RBC 2.41 L Hgb 6.5 L Hct 20.5 L MCV 85 MCH 26.9 L MCHC 31.6 L RDW 19.4 H Plt Count 491 H Seg Neutrophils % Lymphocytes % Monocytes % Eosinophils % Basophils % Absolute Neutrophils Absolute Lymphocytes Absolute Monocytes Absolute Eosinophils Absolute Basophils Carbonic Acid HCO3/H2CO3 Ratio ABG pH ABG pCO2 ABG pO2 ABG HCO3 ABG O2 Saturation ABG Base Excess FiO2 Sodium 147.0 H Potassium 4.3 Chloride 110 H Carbon Dioxide 20 L Anion Gap 17 BUN 16 Creatinine 0.59 Est GFR ( Amer) > 60 Est GFR (Non-Af Amer) > 60 Glucose 79 Calcium 8.5 Total Bilirubin 1.3 AST 91 H ALT 52 Alkaline Phosphatase 136 H Ammonia Total Protein 7.1 Albumin 3.0 L Triglycerides 102 Cholesterol 87.81 LDL Cholesterol Direct 61 VLDL Cholesterol 20.0 HDL Cholesterol 11 L 03/25/17 03/25/17 03/25/17 03:57 03:57 10:15 Creatine Kinase 42 L 50 L CK-MB (CK-2) 1.20 Troponin I < 0.012 03/25/17 10:15 Creatine Kinase CK-MB (CK-2) 1.00 Troponin I < 0.012 Impressions: Femur X-Ray 03/24/17 18:15 IMPRESSION: Fracture of the distal femur as described. Tibia/Fibula X-Ray 03/24/17 18:15 IMPRESSION: No acute fracture or radiopaque foreign body.No worrisome bone lesions. Chest X-Ray 03/24/17 18:27 IMPRESSION: NO ACUTE RADIOGRAPHIC FINDING IN THE CHEST. Assessment & Plan - Diagnosis (1) Gangrene of lower extremity Is this a current diagnosis for this admission?: Yes (2) Sepsis Qualifiers: Sepsis type: sepsis due to unspecified organism Qualified Code(s): A41.9 - Sepsis, unspecified organism Is this a current diagnosis for this admission?: Yes (3) Paraplegia Is this a current diagnosis for this admission?: Yes (4) Methadone maintenance therapy patient Is this a current diagnosis for this admission?: Yes - Plan Summary Plan Summary: Continue IV antibiotic
[2017-03-25 18:01] LABS: HEMATOCRIT 22.5 % (37.9-51.0); HGB HCT DIFFERENCE -0.6; MEAN CORPUSCULAR HEMOGLOBIN 27.6 pg (27.0-33.4); MEAN CORPUSCULAR HGB CONC 32.6 g/dL (32.0-36.0); MEAN CORPUSCULAR VOLUME 85 fl (80-97); RED BLOOD COUNT 2.66 10^6/uL (4.35-5.55); WHITE BLOOD COUNT 16.7 10^3/uL (4.0-10.5)
[2017-03-25 18:08] LABS: HEMOGLOBIN 7.3 g/dL (13.5-17.0)
--- NOTE | 2017-03-25 20:00 | PDOC PROGRESS REPORT ---
Subjective Progress Note for:: 03/25/17 Subjective:: Feels okay. No chest pain no lightheadedness Physical Exam Vital Signs: Temp Pulse Resp BP Pulse Ox 98.5 F 83 18 113/71 100 03/25/17 19:36 03/25/17 19:36 03/25/17 19:36 03/25/17 19:36 03/25/17 19:36 Intake & Output 03/24/17 03/25/17 03/26/17 06:59 06:59 06:59 Intake Total 315 5550 Output Total 100 2585 Balance 215 2965 Weight 90.1 kg General appearance: PRESENT: no acute distress, cooperative Respiratory exam: PRESENT: clear to auscultation magda Cardiovascular exam: PRESENT: RRR Extremities exam: PRESENT: other - Stump dressing intact. Drain is blood- tinged output. Results Laboratory Results: 03/25/17 17:37 03/25/17 03:57 03/24/17 03/24/17 03/25/17 21:55 23:40 03:57 WBC 16.9 H RBC 3.23 L Hgb 8.4 L Hct 27.3 L MCV 84 MCH 26.1 L MCHC 30.9 L RDW 20.4 H Plt Count 652 H Seg Neutrophils % 67.6 Lymphocytes % 19.8 Monocytes % 10.6 Eosinophils % 1.8 Basophils % 0.2 Absolute Neutrophils 11.4 H Absolute Lymphocytes 3.3 Absolute Monocytes 1.8 H Absolute Eosinophils 0.3 Absolute Basophils 0.0 Carbonic Acid 1.09 HCO3/H2CO3 Ratio 20:1 ABG pH 7.42 ABG pCO2 36.2 ABG pO2 70.7 L ABG HCO3 22.7 ABG O2 Saturation 94.6 ABG Base Excess -1.6 FiO2 21% Sodium Potassium Chloride Carbon Dioxide Anion Gap BUN Creatinine Est GFR ( Amer) Est GFR (Non-Af Amer) Glucose Calcium Total Bilirubin AST ALT Alkaline Phosphatase Ammonia 22.0 Total Protein Albumin Triglycerides Cholesterol LDL Cholesterol Direct VLDL Cholesterol HDL Cholesterol 03/25/17 03/25/17 03/25/17 03:57 14:51 17:37 WBC 15.9 H 16.7 H RBC 2.41 L 2.66 L Hgb 6.5 L 7.3 L Hct 20.5 L 22.5 L MCV 85 85 MCH 26.9 L 27.6 MCHC 31.6 L 32.6 RDW 19.4 H 18.0 H Plt Count 491 H 452 H Seg Neutrophils % Lymphocytes % Monocytes % Eosinophils % Basophils % Absolute Neutrophils Absolute Lymphocytes Absolute Monocytes Absolute Eosinophils Absolute Basophils Carbonic Acid HCO3/H2CO3 Ratio ABG pH ABG pCO2 ABG pO2 ABG HCO3 ABG O2 Saturation ABG Base Excess FiO2 Sodium 147.0 H Potassium 4.3 Chloride 110 H Carbon Dioxide 20 L Anion Gap 17 BUN 16 Creatinine 0.59 Est GFR ( Amer) > 60 Est GFR (Non-Af Amer) > 60 Glucose 79 Calcium 8.5 Total Bilirubin 1.3 AST 91 H ALT 52 Alkaline Phosphatase 136 H Ammonia Total Protein 7.1 Albumin 3.0 L Triglycerides 102 Cholesterol 87.81 LDL Cholesterol Direct 61 VLDL Cholesterol 20.0 HDL Cholesterol 11 L 03/25/17 03/25/17 03/25/17 03:57 03:57 10:15 Creatine Kinase 42 L 50 L CK-MB (CK-2) 1.20 Troponin I < 0.012 03/25/17 10:15 Creatine Kinase CK-MB (CK-2) 1.00 Troponin I < 0.012 Impressions: Femur X-Ray 03/24/17 18:15 IMPRESSION: Fracture of the distal femur as described. Tibia/Fibula X-Ray 03/24/17 18:15 IMPRESSION: No acute fracture or radiopaque foreign body.No worrisome bone lesions. Chest X-Ray 03/24/17 18:27 IMPRESSION: NO ACUTE RADIOGRAPHIC FINDING IN THE CHEST. Assessment & Plan - Diagnosis (1) leg gangrene Is this a current diagnosis for this admission?: Yes Plan: Status post [id number] amputation. Intraoperative blood loss. Patient looks good otherwise. Getting transfused further tonight.
[2017-03-26] MEDS: GABAPENTIN 400 MG CAPSULE PO SCH ×4 (01:01→17:04)
[2017-03-26] MEDS: PIPERACILLIN SODIUM/TAZOBACTAM 3.375 GM in NORMAL SALINE 100 ML IV SCH ×4 (01:01→17:04)
[2017-03-26 06:37] LABS: ABSOLUTE BASOPHILS # (AUTO) 0.1 10^3/uL (0.0-0.2); ABSOLUTE EOSINOPHILS # (AUTO) 0.4 10^3/uL (0.0-0.6); ABSOLUTE LYMPHOCYTES (AUTO) 4.8 10^3/uL (0.5-4.7); ABSOLUTE MONOCYTES (AUTO) 1.8 10^3/uL (0.1-1.4); ABSOLUTE NEUT (AUTO) 11.8 10^3/uL (1.7-8.2); BASOPHILS % (AUTO) 0.4 % (0-2); HEMATOCRIT 29.7 % (37.9-51.0); LYMPHOCYTES % (AUTO) 25.4 % (13-45); MEAN CORPUSCULAR HEMOGLOBIN 28.6 pg (27.0-33.4); MEAN CORPUSCULAR HGB CONC 33.3 g/dL (32.0-36.0); MEAN CORPUSCULAR VOLUME 86 fl (80-97); MONOCYTES % (AUTO) 9.8 % (3-13); RED BLOOD COUNT 3.46 10^6/uL (4.35-5.55); RED CELL DISTRIBUTION WIDTH 16.7 % (11.5-14.0); SEGMENTED NEUTROPHILS % (AUTO) 62.4 % (42-78); WHITE BLOOD COUNT 18.8 10^3/uL (4.0-10.5)
[2017-03-26 06:40] LABS: ALANINE AMINOTRANSFERASE 40 U/L (21-72); ALBUMIN 2.1 g/dL (3.5-5.0); ALKALINE PHOSPHATASE 86 U/L (38-126); ANION GAP 11 (5-19); ASPARTATE AMINO TRANSFERASE 55 U/L (17-59); BILIRUBIN,DIRECT 0.8 mg/dL (0.0-0.4); BILIRUBIN,TOTAL 1.2 mg/dL (0.2-1.3); BLOOD UREA NITROGEN 18 mg/dL (7-20); CALCIUM 7.5 mg/dL (8.4-10.2); CARBON DIOXIDE 18 mmol/L (22-30); CHLORIDE 112 mmol/L (98-107); CREATININE RESULT 1.69 mg/dL (0.52-1.25); GLUCOSE 77 mg/dL (75-110); POTASSIUM 4.1 mmol/L (3.6-5.0); SODIUM 140.7 mmol/L (137-145); TOTAL PROTEIN 5.3 g/dL (6.3-8.2)
[2017-03-26 06:51] LABS: HEMOGLOBIN 9.9 g/dL (13.5-17.0)
[2017-03-26] MEDS: MORPHINE SULFATE 10 MG/ML INJ IV PRN (08:31)
[2017-03-26] MEDS: METHADONE HCL 10 MG TABLET PO SCH (09:38)
[2017-03-26] MEDS: ENOXAPARIN SODIUM INJ 30 MG/0.3 ML DISP.SYRIN SUBCUT SCH (09:42)
[2017-03-26] MEDS ORDERED: INFLUENZA ADLT QUAD (36MOS+) 2017-18 VAC 0.5 ML SYR IM PRN (10:00)
[2017-03-26] MEDS ORDERED: ONDANSETRON HCL INJ/PF 4 MG/2 ML SDV IV PRN (10:00)
[2017-03-26] MEDS: VANCOMYCIN HCL 1,500 MG in DEXTROSE 5%-WATER 250 ML IV SCH (12:35)
--- NOTE | 2017-03-26 14:05 | Physician Advisory Note ---
Physician Advisor ProgressNote .: Pursuant to the plan for [facility], I have reviewed the medical record for this patient. Physician Advisor Statement: Nice documentation of paraplegia & methadone dependence. Please consider documenting, if you agree: 1. "possible sepsis due to leg ulcer, evidenced by leukocytosis & , ruled out/in" Need to state criteria used to dx sepsis explicitly in chart or this dx will be denied - or else state "sepsis dx was considered & ruled out". - This reviewer doesn't find more than 1 of either Sepsis-2 or Sepsis-3 criteria in this case .... 2. ? - "Anemia of acute blood loss due to leg ulcer, transfused" 3. "anemia of chronic ____" [Fe defic from chronic blood loss from ___, or nutritional Fe defic, or ...?] 4. "Acute hypernatremia, likely due to ____, resolved" Thanks! CK
--- NOTE | 2017-03-26 17:32 | PDOC PROGRESS REPORT ---
Subjective Progress Note for:: 03/26/17 Subjective:: Pains in left AKA site Physical Exam Vital Signs: Temp Pulse Resp BP Pulse Ox 99.1 F 82 19 117/68 100 03/26/17 15:46 03/26/17 15:46 03/26/17 15:46 03/26/17 15:46 03/26/17 15:46 Intake & Output 03/25/17 03/26/17 03/27/17 06:59 06:59 06:59 Intake Total 315 6900 458 Output Total 100 2885 160 Balance 215 4015 298 Weight 90.1 kg 81.6 kg Exam: Dressings in place. CHAS drained at least 50 cc when seen this morning. Drainage is blood tinge Results Laboratory Results: 03/26/17 06:11 03/26/17 06:11 03/25/17 03/26/17 03/26/17 17:37 06:11 06:11 WBC 16.7 H 18.8 H RBC 2.66 L 3.46 L Hgb 7.3 L 9.9 L D Hct 22.5 L 29.7 L MCV 85 86 MCH 27.6 28.6 MCHC 32.6 33.3 RDW 18.0 H 16.7 H Plt Count 452 H 440 Seg Neutrophils % 62.4 Lymphocytes % 25.4 Monocytes % 9.8 Eosinophils % 2.0 Basophils % 0.4 Absolute Neutrophils 11.8 H Absolute Lymphocytes 4.8 H Absolute Monocytes 1.8 H Absolute Eosinophils 0.4 Absolute Basophils 0.1 Sodium 140.7 Potassium 4.1 Chloride 112 H Carbon Dioxide 18 L Anion Gap 11 BUN 18 Creatinine 1.69 H Est GFR ( Amer) 53 L Est GFR (Non-Af Amer) 44 L Glucose 77 Calcium 7.5 L Total Bilirubin 1.2 AST 55 ALT 40 Alkaline Phosphatase 86 Total Protein 5.3 L Albumin 2.1 L 03/25/17 03/25/17 03/25/17 03:57 03:57 10:15 Creatine Kinase 42 L 50 L CK-MB (CK-2) 1.20 Troponin I < 0.012 03/25/17 10:15 Creatine Kinase CK-MB (CK-2) 1.00 Troponin I < 0.012 Impressions: Femur X-Ray 03/24/17 18:15 IMPRESSION: Fracture of the distal femur as described. Tibia/Fibula X-Ray 03/24/17 18:15 IMPRESSION: No acute fracture or radiopaque foreign body.No worrisome bone lesions. Chest X-Ray 03/24/17 18:27 IMPRESSION: NO ACUTE RADIOGRAPHIC FINDING IN THE CHEST. Assessment & Plan - Time Time Spent with patient: 15-24 minutes - Inpatient Certification Based on my medical assessment, after consideration of the patient's comorbidities, presenting symptoms, or acuity I expect that the services needed warrant INPATIENT care.: Yes I certify that my determination is in accordance with my understanding of Medicare's requirements for reasonable and necessary INPATIENT services [42 CFR 412.3e].: Yes Medical Necessity: Need for Pain Control, Need for IV Antibiotics - Plan Summary Plan Summary: Continue on type antibiotics Monitor white count and H&H Pain management
[2017-03-26] MEDS ORDERED: FUROSEMIDE INJ/PF 40 MG/4 ML SDV IV ONE (18:15)
--- NOTE | 2017-03-26 20:59 | PDOC PROGRESS REPORT ---
Subjective Progress Note for:: 03/26/17 Subjective:: Patient status post AKA of left leg on IV antibiotic, he was seen by the bedside , is depressed is upset as expected Physical Exam Vital Signs: Temp Pulse Resp BP Pulse Ox 99.1 F 82 19 117/68 100 03/26/17 15:46 03/26/17 15:46 03/26/17 15:46 03/26/17 15:46 03/26/17 15:46 Intake & Output 03/25/17 03/26/17 03/27/17 06:59 06:59 06:59 Intake Total 315 6900 1960 Output Total 100 2885 365 Balance 215 4015 1595 Weight 90.1 kg 81.6 kg General appearance: PRESENT: no acute distress Eye exam: PRESENT: PERRLA Respiratory exam: PRESENT: clear to auscultation magda Cardiovascular exam: PRESENT: +S1, +S2 GI/Abdominal exam: PRESENT: soft Neurological exam: PRESENT: alert Results Laboratory Results: 03/26/17 06:11 03/26/17 06:11 03/26/17 03/26/17 06:11 06:11 WBC 18.8 H RBC 3.46 L Hgb 9.9 L D Hct 29.7 L MCV 86 MCH 28.6 MCHC 33.3 RDW 16.7 H Plt Count 440 Seg Neutrophils % 62.4 Lymphocytes % 25.4 Monocytes % 9.8 Eosinophils % 2.0 Basophils % 0.4 Absolute Neutrophils 11.8 H Absolute Lymphocytes 4.8 H Absolute Monocytes 1.8 H Absolute Eosinophils 0.4 Absolute Basophils 0.1 Sodium 140.7 Potassium 4.1 Chloride 112 H Carbon Dioxide 18 L Anion Gap 11 BUN 18 Creatinine 1.69 H Est GFR ( Amer) 53 L Est GFR (Non-Af Amer) 44 L Glucose 77 Calcium 7.5 L Total Bilirubin 1.2 AST 55 ALT 40 Alkaline Phosphatase 86 Total Protein 5.3 L Albumin 2.1 L 03/25/17 03/25/17 03/25/17 03:57 03:57 10:15 Creatine Kinase 42 L 50 L CK-MB (CK-2) 1.20 Troponin I < 0.012 03/25/17 10:15 Creatine Kinase CK-MB (CK-2) 1.00 Troponin I < 0.012 Impressions: Femur X-Ray 10/10/17 18:15 IMPRESSION: Fracture of the distal femur as described. Tibia/Fibula X-Ray 03/24/17 18:15 IMPRESSION: No acute fracture or radiopaque foreign body.No worrisome bone lesions. Chest X-Ray 03/24/17 18:27 IMPRESSION: NO ACUTE RADIOGRAPHIC FINDING IN THE CHEST. Assessment & Plan - Diagnosis (1) Gangrene of lower extremity Is this a current diagnosis for this admission?: Yes (2) Sepsis Qualifiers: Sepsis type: sepsis due to unspecified organism Qualified Code(s): A41.9 - Sepsis, unspecified organism Is this a current diagnosis for this admission?: Yes (3) Paraplegia Is this a current diagnosis for this admission?: Yes (4) Methadone maintenance therapy patient Is this a current diagnosis for this admission?: Yes
[2017-03-27] MEDS: PIPERACILLIN SODIUM/TAZOBACTAM 3.375 GM in NORMAL SALINE 100 ML IV SCH ×3 (00:36→11:33)
[2017-03-27] MEDS: GABAPENTIN 400 MG CAPSULE PO SCH ×5 (00:36→23:25)
[2017-03-27] MEDS: NORMAL SALINE 1000 ML 1,000 ML IV PRN ×2 (04:53→20:14)
[2017-03-27 05:28] LABS: ABSOLUTE BASOPHILS # (AUTO) 0.1 10^3/uL (0.0-0.2); ABSOLUTE EOSINOPHILS # (AUTO) 0.6 10^3/uL (0.0-0.6); ABSOLUTE LYMPHOCYTES (AUTO) 5.5 10^3/uL (0.5-4.7); ABSOLUTE NEUT (AUTO) 11.2 10^3/uL (1.7-8.2); BASOPHILS % (AUTO) 0.4 % (0-2); EOSINOPHILS % (AUTO) 3.2 % (0-6); HEMATOCRIT 27.5 % (37.9-51.0); HEMOGLOBIN 8.9 g/dL (13.5-17.0); HGB HCT DIFFERENCE -0.8; LYMPHOCYTES % (AUTO) 28.2 % (13-45); MEAN CORPUSCULAR HEMOGLOBIN 28.1 pg (27.0-33.4); MEAN CORPUSCULAR HGB CONC 32.5 g/dL (32.0-36.0); MEAN CORPUSCULAR VOLUME 87 fl (80-97); MONOCYTES % (AUTO) 10.5 % (3-13); RED BLOOD COUNT 3.18 10^6/uL (4.35-5.55); RED CELL DISTRIBUTION WIDTH 17.2 % (11.5-14.0); SEGMENTED NEUTROPHILS % (AUTO) 57.7 % (42-78); WHITE BLOOD COUNT 19.5 10^3/uL (4.0-10.5)
[2017-03-27 05:43] LABS: ALANINE AMINOTRANSFERASE 37 U/L (21-72); ALBUMIN 2.1 g/dL (3.5-5.0); ALKALINE PHOSPHATASE 77 U/L (38-126); ANION GAP 13 (5-19); ASPARTATE AMINO TRANSFERASE 53 U/L (17-59); BILIRUBIN,DIRECT 0.7 mg/dL (0.0-0.4); BILIRUBIN,TOTAL 0.7 mg/dL (0.2-1.3); BLOOD UREA NITROGEN 25 mg/dL (7-20); CALCIUM 7.8 mg/dL (8.4-10.2); CARBON DIOXIDE 17 mmol/L (22-30); CHLORIDE 111 mmol/L (98-107); CREATININE RESULT 3.33 mg/dL (0.52-1.25); GLUCOSE 93 mg/dL (75-110); POTASSIUM 4.2 mmol/L (3.6-5.0); SODIUM 140.6 mmol/L (137-145); TOTAL PROTEIN 5.2 g/dL (6.3-8.2)
[2017-03-27] MEDS: METHADONE HCL 10 MG TABLET PO SCH (09:21)
[2017-03-27] MEDS: ENOXAPARIN SODIUM INJ 30 MG/0.3 ML DISP.SYRIN SUBCUT SCH (09:29)
--- NOTE | 2017-03-27 16:14 | PDOC PROGRESS REPORT ---
Subjective Progress Note for:: 03/27/17 Subjective:: Still with pains along the left AKA stump Physical Exam Vital Signs: Temp Pulse Resp BP Pulse Ox 98.0 F 79 18 108/69 100 03/27/17 12:34 03/27/17 12:34 03/27/17 12:34 03/27/17 12:34 03/27/17 12:34 Intake & Output 03/26/17 03/27/17 03/28/17 06:59 06:59 06:59 Intake Total 6900 4320 358 Output Total 2885 715 Balance 4015 3605 358 Weight 81.6 kg 85.2 kg Exam: Left AKA stump dressing is dry but the thigh appears to be somewhat swollen. CHAS drain about 65 cc of serosanguineous fluid past 24 hours. Patient also noted to have a small tunnel area and the sacral decubitus allowing a Q-tip to go through up to about 3 cm deep. This was then packed with iodoform gauze and I told the nurses to continue doing this at least once a day Results Laboratory Results: 03/27/17 05:00 03/27/17 05:00 03/27/17 03/27/17 05:00 05:00 WBC 19.5 H RBC 3.18 L Hgb 8.9 L Hct 27.5 L MCV 87 MCH 28.1 MCHC 32.5 RDW 17.2 H Plt Count 474 H Seg Neutrophils % 57.7 Lymphocytes % 28.2 Monocytes % 10.5 Eosinophils % 3.2 Basophils % 0.4 Absolute Neutrophils 11.2 H Absolute Lymphocytes 5.5 H Absolute Monocytes 2.0 H Absolute Eosinophils 0.6 Absolute Basophils 0.1 Sodium 140.6 Potassium 4.2 Chloride 111 H Carbon Dioxide 17 L Anion Gap 13 BUN 25 H Creatinine 3.33 H Est GFR ( Amer) 24 L Est GFR (Non-Af Amer) 20 L Glucose 93 Calcium 7.8 L Total Bilirubin 0.7 AST 53 ALT 37 Alkaline Phosphatase 77 Total Protein 5.2 L Albumin 2.1 L 03/25/17 03/25/17 03/25/17 03:57 03:57 10:15 Creatine Kinase 42 L 50 L CK-MB (CK-2) 1.20 Troponin I < 0.012 03/25/17 10:15 Creatine Kinase CK-MB (CK-2) 1.00 Troponin I < 0.012 Impressions: Femur X-Ray 03/24/17 18:15 IMPRESSION: Fracture of the distal femur as described. Tibia/Fibula X-Ray 03/24/17 18:15 IMPRESSION: No acute fracture or radiopaque foreign body.No worrisome bone lesions. Chest X-Ray 03/24/17 18:27 IMPRESSION: NO ACUTE RADIOGRAPHIC FINDING IN THE CHEST. Assessment & Plan - Diagnosis (1) Sacral decubitus ulcer, stage III Is this a current diagnosis for this admission?: Yes Plan: Daily packing with the iodoform gauze - Time Time Spent with patient: 15-24 minutes - Plan Summary Plan Summary: #1 continue with IV antibiotics 2. We will leave the drain and continue measuring the drainage 3. We will check the wound in a.m. 4. Continue daily packing of a small deep sacral decubitus ulcer
[2017-03-27] MEDS: PIPERACILLIN SODIUM/TAZOBACTAM 2.25 GM in NORMAL SALINE 50 ML IV SCH ×2 (17:28→23:25)
[2017-03-28] MEDS: PIPERACILLIN SODIUM/TAZOBACTAM 2.25 GM in NORMAL SALINE 50 ML IV SCH ×4 (05:24→23:59)
[2017-03-28] MEDS: NORMAL SALINE 1000 ML 1,000 ML IV PRN ×2 (05:24→15:16)
[2017-03-28] MEDS: GABAPENTIN 400 MG CAPSULE PO SCH ×4 (05:24→23:58)
[2017-03-28] MEDS: METHADONE HCL 10 MG TABLET PO SCH (09:25)
[2017-03-28] MEDS: ENOXAPARIN SODIUM INJ 30 MG/0.3 ML DISP.SYRIN SUBCUT SCH ×2 (09:32→09:40)
--- NOTE | 2017-03-28 09:40 | PDOC PROGRESS REPORT ---
Subjective Progress Note for:: 03/28/17 Physical Exam Vital Signs: Temp Pulse Resp BP Pulse Ox 98.4 F 74 18 110/76 100 03/28/17 07:48 03/28/17 07:48 03/28/17 07:48 03/28/17 07:48 03/28/17 07:48 Intake & Output 03/27/17 03/28/17 03/29/17 06:59 06:59 06:59 Intake Total 4320 4255 Output Total 715 1458 Balance 3605 2797 Weight 85.2 kg 89.9 kg Extremities exam: PRESENT: other - AKA stum clean robert serous May dc home with follow up in surgery clinic for staple removal Results Laboratory Results: 03/27/17 05:00 03/27/17 05:00 03/25/17 03/25/17 03/25/17 03:57 03:57 10:15 Creatine Kinase 42 L 50 L CK-MB (CK-2) 1.20 Troponin I < 0.012 03/25/17 10:15 Creatine Kinase CK-MB (CK-2) 1.00 Troponin I < 0.012 Impressions: Femur X-Ray 03/24/17 18:15 IMPRESSION: Fracture of the distal femur as described. Tibia/Fibula X-Ray 03/24/17 18:15 IMPRESSION: No acute fracture or radiopaque foreign body.No worrisome bone lesions. Chest X-Ray 03/24/17 18:27 IMPRESSION: NO ACUTE RADIOGRAPHIC FINDING IN THE CHEST.
--- NOTE | 2017-03-28 09:58 | PDOC PROGRESS REPORT ---
Subjective Progress Note for:: 03/27/17 Subjective:: He was seen by the bedside, he developed acute kidney injury most likely ATN from vancomycin Physical Exam Vital Signs: Temp Pulse Resp BP Pulse Ox 98.4 F 74 18 110/76 100 03/28/17 07:48 03/28/17 07:48 03/28/17 07:48 03/28/17 07:48 03/28/17 07:48 Intake & Output 03/27/17 03/28/17 03/29/17 06:59 06:59 06:59 Intake Total 4320 4255 Output Total 715 6168 Balance 3605 2797 Weight 85.2 kg 89.9 kg General appearance: PRESENT: no acute distress Eye exam: PRESENT: PERRLA Respiratory exam: PRESENT: clear to auscultation magda Cardiovascular exam: PRESENT: +S1, +S2 GI/Abdominal exam: PRESENT: soft Neurological exam: PRESENT: alert Results Laboratory Results: 03/27/17 05:00 03/27/17 05:00 03/25/17 03/25/17 03/25/17 03:57 03:57 10:15 Creatine Kinase 42 L 50 L CK-MB (CK-2) 1.20 Troponin I < 0.012 03/25/17 10:15 Creatine Kinase CK-MB (CK-2) 1.00 Troponin I < 0.012 Impressions: Femur X-Ray 03/24/17 18:15 IMPRESSION: Fracture of the distal femur as described. Tibia/Fibula X-Ray 03/24/17 18:15 IMPRESSION: No acute fracture or radiopaque foreign body.No worrisome bone lesions. Chest X-Ray 03/24/17 18:27 IMPRESSION: NO ACUTE RADIOGRAPHIC FINDING IN THE CHEST. Assessment & Plan - Diagnosis (1) Gangrene of lower extremity Is this a current diagnosis for this admission?: Yes (2) Sepsis Qualifiers: Sepsis type: sepsis due to unspecified organism Qualified Code(s): A41.9 - Sepsis, unspecified organism Is this a current diagnosis for this admission?: Yes (3) Paraplegia Is this a current diagnosis for this admission?: Yes (4) Methadone maintenance therapy patient Is this a current diagnosis for this admission?: Yes (5) Acute kidney injury Is this a current diagnosis for this admission?: Yes Plan: He has acute kidney injury, the differential diagnosis would include acute interstitial nephritis, ATN from vancomycin most likely it is ATN from vancomycin, the vancomycin trough is high, vancomycin on hold
[2017-03-28 11:13] LABS: ABSOLUTE EOSINOPHILS # (AUTO) 0.9 10^3/uL (0.0-0.6); ABSOLUTE LYMPHOCYTES (AUTO) 3.8 10^3/uL (0.5-4.7); ABSOLUTE MONOCYTES (AUTO) 1.3 10^3/uL (0.1-1.4); ABSOLUTE NEUT (AUTO) 11.1 10^3/uL (1.7-8.2); BASOPHILS % (AUTO) 0.3 % (0-2); EOSINOPHILS % (AUTO) 5.4 % (0-6); HEMATOCRIT 25.6 % (37.9-51.0); HEMOGLOBIN 8.3 g/dL (13.5-17.0); HGB HCT DIFFERENCE -0.7; LYMPHOCYTES % (AUTO) 22.1 % (13-45); MEAN CORPUSCULAR HEMOGLOBIN 28.8 pg (27.0-33.4); MEAN CORPUSCULAR HGB CONC 32.5 g/dL (32.0-36.0); MEAN CORPUSCULAR VOLUME 89 fl (80-97); MONOCYTES % (AUTO) 7.6 % (3-13); RED BLOOD COUNT 2.88 10^6/uL (4.35-5.55); RED CELL DISTRIBUTION WIDTH 17.6 % (11.5-14.0); SEGMENTED NEUTROPHILS % (AUTO) 64.6 % (42-78); WHITE BLOOD COUNT 17.2 10^3/uL (4.0-10.5)
[2017-03-28 13:15] LABS: ALANINE AMINOTRANSFERASE 38 U/L (21-72); ALBUMIN 1.9 g/dL (3.5-5.0); ALKALINE PHOSPHATASE 66 U/L (38-126); ANION GAP 13 (5-19); ASPARTATE AMINO TRANSFERASE 40 U/L (17-59); BILIRUBIN,DIRECT 0.5 mg/dL (0.0-0.4); BILIRUBIN,TOTAL 0.5 mg/dL (0.2-1.3); BLOOD UREA NITROGEN 36 mg/dL (7-20); CALCIUM 7.8 mg/dL (8.4-10.2); CARBON DIOXIDE 14 mmol/L (22-30); CHLORIDE 114 mmol/L (98-107); CREATININE RESULT 4.51 mg/dL (0.52-1.25); GLUCOSE 105 mg/dL (75-110); POTASSIUM 4.5 mmol/L (3.6-5.0); SODIUM 140.5 mmol/L (137-145)
[2017-03-28 16:13] LABS: APPEARANCE,URINE SLIGHTLY-CLOUDY; BILIRUBIN,URINE NEGATIVE (NEGATIVE); GLUCOSE, URINE NEGATIVE (NEGATIVE); KETONES,URINE NEGATIVE (NEGATIVE); LEUKOCYTE ESTERASE,URINE MODERATE (NEGATIVE); NITRITE,URINE NEGATIVE (NEGATIVE); PROTEIN,URINE NEGATIVE (NEGATIVE); URINE SPECIFIC GRAVITY 1.005; UROBILINOGEN,URINE NEGATIVE mg/dL (<2.0)
--- NOTE | 2017-03-28 16:44 | PDOC PROGRESS REPORT ---
Subjective Progress Note for:: 03/28/17 Subjective:: He has nonoliguric acute kidney injury most likely from vancomycin. The kidney function is Was worse today compared to yesterday, the vancomycin was discontinued. Physical Exam Vital Signs: Temp Pulse Resp BP Pulse Ox 97.7 F 74 18 120/78 100 03/28/17 12:07 03/28/17 14:00 03/28/17 12:07 03/28/17 12:07 03/28/17 12:07 Intake & Output 03/27/17 03/28/17 03/29/17 06:59 06:59 06:59 Intake Total 4320 4255 400 Output Total 715 1458 400 Balance 3605 2797 0 Weight 85.2 kg 89.9 kg General appearance: PRESENT: no acute distress Head exam: PRESENT: atraumatic, normocephalic Eye exam: PRESENT: PERRLA. ABSENT: scleral icterus Neck exam: PRESENT: full ROM Respiratory exam: PRESENT: clear to auscultation magda Cardiovascular exam: PRESENT: RRR, +S1, +S2 Vascular exam: PRESENT: normal capillary refill GI/Abdominal exam: PRESENT: normal bowel sounds, soft Rectal exam: PRESENT: deferred Extremities exam: PRESENT: left AKA Neurological exam: PRESENT: alert Skin exam: PRESENT: dry, intact, warm. ABSENT: cyanosis, rash Results Laboratory Results: 03/28/17 10:18 03/28/17 12:48 03/28/17 03/28/17 03/28/17 10:18 10:18 12:48 WBC 17.2 H RBC 2.88 L Hgb 8.3 L Hct 25.6 L MCV 89 MCH 28.8 MCHC 32.5 RDW 17.6 H Plt Count 504 H Seg Neutrophils % 64.6 Lymphocytes % 22.1 Monocytes % 7.6 Eosinophils % 5.4 Basophils % 0.3 Absolute Neutrophils 11.1 H Absolute Lymphocytes 3.8 Absolute Monocytes 1.3 Absolute Eosinophils 0.9 H Absolute Basophils 0.0 Sodium Cancelled 140.5 Potassium Cancelled 4.5 Chloride Cancelled 114 H Carbon Dioxide Cancelled 14 L Anion Gap Cancelled 13 BUN Cancelled 36 H Creatinine Cancelled 4.51 H Est GFR ( Amer) Cancelled 17 L Est GFR (Non-Af Amer) Cancelled 14 L Glucose Cancelled 105 Calcium Cancelled 7.8 L Total Bilirubin Cancelled 0.5 AST Cancelled 40 ALT Cancelled 38 Alkaline Phosphatase Cancelled 66 Total Protein Cancelled 5.0 L Albumin Cancelled 1.9 L Urine Color Urine Appearance Urine pH Ur Specific [place] Urine Protein Urine Glucose (UA) Urine Ketones Urine Blood Urine Nitrite Ur Leukocyte Esterase Urine WBC (Auto) Urine RBC (Auto) 03/28/17 15:30 WBC RBC Hgb Hct MCV MCH MCHC RDW Plt Count Seg Neutrophils % Lymphocytes % Monocytes % Eosinophils % Basophils % Absolute Neutrophils Absolute Lymphocytes Absolute Monocytes Absolute Eosinophils Absolute Basophils Sodium Potassium Chloride Carbon Dioxide Anion Gap BUN Creatinine Est GFR ( Amer) Est GFR (Non-Af Amer) Glucose Calcium Total Bilirubin AST ALT Alkaline Phosphatase Total Protein Albumin Urine Color STRAW Urine Appearance SLIGHTLY-CLOUDY Urine pH 5.0 Ur Specific [place] 1.005 Urine Protein NEGATIVE Urine Glucose (UA) NEGATIVE Urine Ketones NEGATIVE Urine Blood SMALL H Urine Nitrite NEGATIVE Ur Leukocyte Esterase MODERATE H Urine WBC (Auto) 17 Urine RBC (Auto) 18 03/25/17 03/25/17 03/25/17 03:57 03:57 10:15 Creatine Kinase 42 L 50 L CK-MB (CK-2) 1.20 Troponin I < 0.012 03/25/17 10:15 Creatine Kinase CK-MB (CK-2) 1.00 Troponin I < 0.012 Impressions: Femur X-Ray 03/24/17 18:15 IMPRESSION: Fracture of the distal femur as described. Tibia/Fibula X-Ray 03/24/17 18:15 IMPRESSION: No acute fracture or radiopaque foreign body.No worrisome bone lesions. Chest X-Ray 03/24/17 18:27 IMPRESSION: NO ACUTE RADIOGRAPHIC FINDING IN THE CHEST. Assessment & Plan - Diagnosis (1) Gangrene of lower extremity Is this a current diagnosis for this admission?: Yes (2) Sepsis Qualifiers: Sepsis type: sepsis due to unspecified organism Qualified Code(s): A41.9 - Sepsis, unspecified organism Is this a current diagnosis for this admission?: Yes (3) Paraplegia Is this a current diagnosis for this admission?: Yes (4) Methadone maintenance therapy patient Is this a current diagnosis for this admission?: Yes (5) Acute kidney injury Plan: he has nonoliguric acute kidney injury, there is no immediate indication for acute dialysis at this time
[2017-03-29] MEDS: NORMAL SALINE 1000 ML 1,000 ML IV PRN ×3 (01:08→19:42)
[2017-03-29] MEDS: GABAPENTIN 400 MG CAPSULE PO SCH ×4 (05:07→23:24)
[2017-03-29] MEDS: PIPERACILLIN SODIUM/TAZOBACTAM 2.25 GM in NORMAL SALINE 50 ML IV SCH ×2 (05:08→12:05)
[2017-03-29] MEDS: MORPHINE SULFATE 10 MG/ML INJ IV PRN ×2 (05:39→14:04)
[2017-03-29 05:57] LABS: HEMATOCRIT 27.5 % (37.9-51.0); HEMOGLOBIN 9.2 g/dL (13.5-17.0); HGB HCT DIFFERENCE 0.1; MEAN CORPUSCULAR HEMOGLOBIN 29.3 pg (27.0-33.4); MEAN CORPUSCULAR HGB CONC 33.2 g/dL (32.0-36.0); MEAN CORPUSCULAR VOLUME 88 fl (80-97); RED BLOOD COUNT 3.12 10^6/uL (4.35-5.55); RED CELL DISTRIBUTION WIDTH 17.6 % (11.5-14.0); WHITE BLOOD COUNT 17.9 10^3/uL (4.0-10.5)
[2017-03-29 06:19] LABS: ALANINE AMINOTRANSFERASE 35 U/L (21-72); ALKALINE PHOSPHATASE 68 U/L (38-126); ANION GAP 13 (5-19); ASPARTATE AMINO TRANSFERASE 38 U/L (17-59); BILIRUBIN,DIRECT 0.5 mg/dL (0.0-0.4); BILIRUBIN,TOTAL 0.5 mg/dL (0.2-1.3); BLOOD UREA NITROGEN 37 mg/dL (7-20); CALCIUM 8.1 mg/dL (8.4-10.2); CARBON DIOXIDE 15 mmol/L (22-30); CHLORIDE 115 mmol/L (98-107); CREATININE RESULT 5.43 mg/dL (0.52-1.25); GLUCOSE 83 mg/dL (75-110); POTASSIUM 4.9 mmol/L (3.6-5.0); SODIUM 143.4 mmol/L (137-145); TOTAL PROTEIN 5.2 g/dL (6.3-8.2)
[2017-03-29 06:25] LABS: BASOPHILS % (MANUAL) 0 % (0-2); EOSINOPHILS % (MANUAL) 5 % (0-6); LYMPHOCYTES % (MANUAL) 30 % (13-45); TOTAL CELLS COUNTED 100
[2017-03-29 06:26] LABS: TOXIC GRANULATION 2+
[2017-03-29 06:27] LABS: ANISOCYTOSIS 1+; BURR CELLS 1+; HYPOCHROMASIA 1+; OVALOCYTES 1+; POIKILOCYTOSIS SLIGHT; SCHISTOCYTES SLIGHT; TARGET CELLS SLIGHT
[2017-03-29] MEDS: METHADONE HCL 10 MG TABLET PO SCH (09:34)
[2017-03-29] MEDS: ENOXAPARIN SODIUM INJ 30 MG/0.3 ML DISP.SYRIN SUBCUT SCH (09:35)
[2017-03-29 10:32] LABS: CREATININE RESULT 5.15 mg/dL (0.52-1.25)
--- NOTE | 2017-03-29 15:32 | PDOC PROGRESS REPORT ---
Subjective Progress Note for:: 03/29/17 Subjective:: pain minmal Physical Exam Vital Signs: Temp Pulse Resp BP Pulse Ox 98.0 F 73 18 115/77 100 03/29/17 12:22 03/29/17 12:22 03/29/17 12:22 03/29/17 12:22 03/29/17 12:22 Intake & Output 03/28/17 03/29/17 03/30/17 06:59 06:59 06:59 Intake Total 4255 3773 300 Output Total 1458 1715 600 Balance 2797 2058 -300 Weight 89.9 kg 92.2 kg Extremities exam: PRESENT: other - left AKA stump clean Results Laboratory Results: 03/29/17 05:35 03/29/17 09:58 03/28/17 03/29/17 03/29/17 15:30 05:35 05:35 WBC 17.9 H RBC 3.12 L Hgb 9.2 L Hct 27.5 L MCV 88 MCH 29.3 MCHC 33.2 RDW 17.6 H Plt Count 593 H Seg Neutrophils % Not Reportable Lymphocytes % Not Reportable Monocytes % Not Reportable Eosinophils % Not Reportable Basophils % Not Reportable Absolute Neutrophils Not Reportable Absolute Lymphocytes Not Reportable Absolute Monocytes Not Reportable Absolute Eosinophils Not Reportable Absolute Basophils Not Reportable Sodium 143.4 Potassium 4.9 Chloride 115 H Carbon Dioxide 15 L Anion Gap 13 BUN 37 H Creatinine 5.43 H Est GFR ( Amer) 14 L Est GFR (Non-Af Amer) 11 L Glucose 83 Calcium 8.1 L Total Bilirubin 0.5 AST 38 ALT 35 Alkaline Phosphatase 68 Total Protein 5.2 L Albumin 2.0 L Urine Color STRAW Urine Appearance SLIGHTLY-CLOUDY Urine pH 5.0 Ur Specific [place] 1.005 Urine Protein NEGATIVE Urine Glucose (UA) NEGATIVE Urine Ketones NEGATIVE Urine Blood SMALL H Urine Nitrite NEGATIVE Ur Leukocyte Esterase MODERATE H Urine WBC (Auto) 17 Urine RBC (Auto) 18 03/29/17 09:58 WBC RBC Hgb Hct MCV MCH MCHC RDW Plt Count Seg Neutrophils % Lymphocytes % Monocytes % Eosinophils % Basophils % Absolute Neutrophils Absolute Lymphocytes Absolute Monocytes Absolute Eosinophils Absolute Basophils Sodium Potassium Chloride Carbon Dioxide Anion Gap BUN Creatinine 5.15 H Est GFR ( Amer) 15 L Est GFR (Non-Af Amer) 12 L Glucose Calcium Total Bilirubin AST ALT Alkaline Phosphatase Total Protein Albumin Urine Color Urine Appearance Urine pH Ur Specific [place] Urine Protein Urine Glucose (UA) Urine Ketones Urine Blood Urine Nitrite Ur Leukocyte Esterase Urine WBC (Auto) Urine RBC (Auto) 03/25/17 03/25/17 03/25/17 03:57 03:57 10:15 Creatine Kinase 42 L 50 L CK-MB (CK-2) 1.20 Troponin I < 0.012 03/25/17 10:15 Creatine Kinase CK-MB (CK-2) 1.00 Troponin I < 0.012 Impressions: Femur X-Ray 03/24/17 18:15 IMPRESSION: Fracture of the distal femur as described. Tibia/Fibula X-Ray 03/24/17 18:15 IMPRESSION: No acute fracture or radiopaque foreign body.No worrisome bone lesions. Chest X-Ray 03/24/17 18:27 IMPRESSION: NO ACUTE RADIOGRAPHIC FINDING IN THE CHEST. Assessment & Plan - Plan Summary Plan Summary: May dc follow up in surgery clinic for staple removal in 1 week
[2017-03-29] MEDS ORDERED: PIPERACILLIN SODIUM/TAZOBACTAM 2.25 GM in NORMAL SALINE 50 ML IV SCH (18:00)
--- NOTE | 2017-03-29 20:55 | PDOC PROGRESS REPORT ---
Subjective Progress Note for:: 03/29/17 Subjective:: Patient was seen by the bedside, the culture from the wound grew polymicrobial species including Proteus, E. coli and MRSA, the culture from the urine grew polymicrobial, Klebsiella Proteus, enterococcus. The only antibiotic that covered all these pathogen is Bactrim, she will be taken off Zosyn and start Bactrim p.o. He also has acute kidney injury there is no indication for dialysis at this time Physical Exam Vital Signs: Temp Pulse Resp BP Pulse Ox 98.8 F 74 20 121/77 100 03/29/17 19:41 03/29/17 19:51 03/29/17 19:41 03/29/17 19:41 03/29/17 19:41 Intake & Output 03/28/17 03/29/17 03/30/17 06:59 06:59 06:59 Intake Total 4255 3773 1962 Output Total 1458 1715 1300 Balance 2797 2058 662 Weight 89.9 kg 92.2 kg General appearance: PRESENT: no acute distress Eye exam: PRESENT: PERRLA Cardiovascular exam: PRESENT: +S1, +S2 GI/Abdominal exam: PRESENT: soft Neurological exam: PRESENT: alert Results Laboratory Results: 03/29/17 05:35 03/29/17 09:58 03/29/17 03/29/17 03/29/17 05:35 05:35 09:58 WBC 17.9 H RBC 3.12 L Hgb 9.2 L Hct 27.5 L MCV 88 MCH 29.3 MCHC 33.2 RDW 17.6 H Plt Count 593 H Seg Neutrophils % Not Reportable Lymphocytes % Not Reportable Monocytes % Not Reportable Eosinophils % Not Reportable Basophils % Not Reportable Absolute Neutrophils Not Reportable Absolute Lymphocytes Not Reportable Absolute Monocytes Not Reportable Absolute Eosinophils Not Reportable Absolute Basophils Not Reportable Sodium 143.4 Potassium 4.9 Chloride 115 H Carbon Dioxide 15 L Anion Gap 13 BUN 37 H Creatinine 5.43 H 5.15 H Est GFR ( Amer) 14 L 15 L Est GFR (Non-Af Amer) 11 L 12 L Glucose 83 Calcium 8.1 L Total Bilirubin 0.5 AST 38 ALT 35 Alkaline Phosphatase 68 Total Protein 5.2 L Albumin 2.0 L 03/25/17 03/25/17 03/25/17 03:57 03:57 10:15 Creatine Kinase 42 L 50 L CK-MB (CK-2) 1.20 Troponin I < 0.012 03/25/17 10:15 Creatine Kinase CK-MB (CK-2) 1.00 Troponin I < 0.012 Impressions: Femur X-Ray 03/24/17 18:15 IMPRESSION: Fracture of the distal femur as described. Tibia/Fibula X-Ray 03/24/17 18:15 IMPRESSION: No acute fracture or radiopaque foreign body.No worrisome bone lesions. Chest X-Ray 03/24/17 18:27 IMPRESSION: NO ACUTE RADIOGRAPHIC FINDING IN THE CHEST. Assessment & Plan - Diagnosis (1) Gangrene of lower extremity Is this a current diagnosis for this admission?: Yes (2) Sepsis Qualifiers: Sepsis type: sepsis due to unspecified organism Qualified Code(s): A41.9 - Sepsis, unspecified organism Is this a current diagnosis for this admission?: Yes Plan: Start p.o. Bactrim (3) Paraplegia Is this a current diagnosis for this admission?: Yes (4) Methadone maintenance therapy patient Is this a current diagnosis for this admission?: Yes
[2017-03-29] MEDS ORDERED: SULFAMETHOXAZOLE/TRIMETHOPRIM 800-160 MG TABLET PO ONE (21:30)
[2017-03-29] MEDS ORDERED: SULFAMETHOXAZOLE/TRIMETHOPRIM 800-160 MG TABLET PO SCH (21:45)
[2017-03-30] MEDS: NORMAL SALINE 1000 ML 1,000 ML IV PRN ×3 (04:35→22:16)
[2017-03-30] MEDS: GABAPENTIN 400 MG CAPSULE PO SCH ×4 (05:09→23:30)
[2017-03-30] MEDS: METHADONE HCL 10 MG TABLET PO SCH (09:33)
[2017-03-30] MEDS: ENOXAPARIN SODIUM INJ 30 MG/0.3 ML DISP.SYRIN SUBCUT SCH (09:33)
--- NOTE | 2017-03-30 13:54 | PDOC PROGRESS REPORT ---
Subjective Progress Note for:: 03/30/17 Subjective:: Patient has no complaints. Physical Exam Vital Signs: Temp Pulse Resp BP Pulse Ox 98.5 F 76 18 122/78 100 03/30/17 12:16 03/30/17 12:16 03/30/17 12:16 03/30/17 12:16 03/30/17 12:16 Intake & Output 03/29/17 03/30/17 03/31/17 06:59 06:59 06:59 Intake Total 3773 3728 240 Output Total 1715 3059 800 Balance 2058 669 -560 Weight 92.2 kg 93.9 kg Musculoskeletal exam: PRESENT: other - Left AKA stump examined. Sanna intact ; poor healing at the drain site. No infection. Results Laboratory Results: 03/29/17 05:35 03/29/17 09:58 03/25/17 03/25/17 03/25/17 03:57 03:57 10:15 Creatine Kinase 42 L 50 L CK-MB (CK-2) 1.20 Troponin I < 0.012 03/25/17 10:15 Creatine Kinase CK-MB (CK-2) 1.00 Troponin I < 0.012 Impressions: Femur X-Ray 03/24/17 18:15 IMPRESSION: Fracture of the distal femur as described. Tibia/Fibula X-Ray 03/24/17 18:15 IMPRESSION: No acute fracture or radiopaque foreign body.No worrisome bone lesions. Chest X-Ray 03/24/17 18:27 IMPRESSION: NO ACUTE RADIOGRAPHIC FINDING IN THE CHEST. Assessment & Plan - Diagnosis (1) Gangrene of lower extremity Is this a current diagnosis for this admission?: Yes Plan: Patient doing well status post right AKA with drain out Plan: 1. Leave sanna in for another 2 weeks 2. Patient return to [place] surgical clinic in 1-2 weeks to follow up with Dr. Gustafson, general surgeon.
[2017-03-30 13:58] LABS: ABSOLUTE BASOPHILS # (AUTO) 0.3 10^3/uL (0.0-0.2); ABSOLUTE EOSINOPHILS # (AUTO) 1.3 10^3/uL (0.0-0.6); ABSOLUTE LYMPHOCYTES (AUTO) 4.1 10^3/uL (0.5-4.7); ABSOLUTE MONOCYTES (AUTO) 1.1 10^3/uL (0.1-1.4); ABSOLUTE NEUT (AUTO) 8.8 10^3/uL (1.7-8.2); BASOPHILS % (AUTO) 1.9 % (0-2); EOSINOPHILS % (AUTO) 8.3 % (0-6); HEMATOCRIT 27.9 % (37.9-51.0); HGB HCT DIFFERENCE -0.9; LYMPHOCYTES % (AUTO) 26.4 % (13-45); MEAN CORPUSCULAR HEMOGLOBIN 28.9 pg (27.0-33.4); MEAN CORPUSCULAR HGB CONC 32.3 g/dL (32.0-36.0); MEAN CORPUSCULAR VOLUME 90 fl (80-97); MONOCYTES % (AUTO) 6.9 % (3-13); RED BLOOD COUNT 3.12 10^6/uL (4.35-5.55); RED CELL DISTRIBUTION WIDTH 17.8 % (11.5-14.0); SEGMENTED NEUTROPHILS % (AUTO) 56.5 % (42-78); WHITE BLOOD COUNT 15.6 10^3/uL (4.0-10.5)
[2017-03-30 14:20] LABS: ALANINE AMINOTRANSFERASE 41 U/L (21-72); ALBUMIN 2.3 g/dL (3.5-5.0); ALKALINE PHOSPHATASE 82 U/L (38-126); ANION GAP 15 (5-19); ASPARTATE AMINO TRANSFERASE 47 U/L (17-59); BILIRUBIN,DIRECT 0.5 mg/dL (0.0-0.4); BILIRUBIN,TOTAL 0.5 mg/dL (0.2-1.3); BLOOD UREA NITROGEN 38 mg/dL (7-20); CALCIUM 8.5 mg/dL (8.4-10.2); CARBON DIOXIDE 14 mmol/L (22-30); CHLORIDE 117 mmol/L (98-107); CREATININE RESULT 5.41 mg/dL (0.52-1.25); GLUCOSE 88 mg/dL (75-110); POTASSIUM 4.9 mmol/L (3.6-5.0); TOTAL PROTEIN 5.6 g/dL (6.3-8.2)
[2017-03-30] MEDS: SULFAMETHOXAZOLE/TRIMETHOPRIM 800-160 MG TABLET PO SCH (18:06)
--- NOTE | 2017-03-30 21:33 | PDOC PROGRESS REPORT ---
Subjective Progress Note for:: 03/30/17 Subjective:: Patient was seen by the bedside, the culture from the wound grew polymicrobial species including Proteus, E. coli and MRSA, the culture from the urine grew polymicrobial, Klebsiella Proteus, enterococcus. The only antibiotic that covered all these pathogen is Bactrim, she will be taken off Zosyn and start Bactrim p.o. He also has acute kidney injury there is no indication for dialysis at this time.He has nonoliguric acute kidney injury the Bactrim dose was adjusted for kidney function Physical Exam Vital Signs: Temp Pulse Resp BP Pulse Ox 98.7 F 75 20 133/82 H 100 03/30/17 20:33 03/30/17 20:33 03/30/17 20:33 03/30/17 20:33 03/30/17 20:33 Intake & Output 03/29/17 03/30/17 03/31/17 06:59 06:59 06:59 Intake Total 3773 3728 2212 Output Total 1715 3059 1700 Balance 2058 669 512 Weight 92.2 kg 93.9 kg General appearance: PRESENT: no acute distress Eye exam: PRESENT: PERRLA Respiratory exam: PRESENT: clear to auscultation magda Cardiovascular exam: PRESENT: +S1, +S2 GI/Abdominal exam: PRESENT: soft Neurological exam: PRESENT: alert, CN II-XII grossly intact Results Laboratory Results: 03/30/17 13:33 03/30/17 13:33 03/30/17 03/30/17 13:33 13:33 WBC 15.6 H RBC 3.12 L Hgb 9.0 L Hct 27.9 L MCV 90 MCH 28.9 MCHC 32.3 RDW 17.8 H Plt Count 712 H Seg Neutrophils % 56.5 Lymphocytes % 26.4 Monocytes % 6.9 Eosinophils % 8.3 H Basophils % 1.9 Absolute Neutrophils 8.8 H Absolute Lymphocytes 4.1 Absolute Monocytes 1.1 Absolute Eosinophils 1.3 H Absolute Basophils 0.3 H Sodium 146.0 H Potassium 4.9 Chloride 117 H Carbon Dioxide 14 L Anion Gap 15 BUN 38 H Creatinine 5.41 H Est GFR ( Amer) 14 L Est GFR (Non-Af Amer) 12 L Glucose 88 Calcium 8.5 Total Bilirubin 0.5 AST 47 ALT 41 Alkaline Phosphatase 82 Total Protein 5.6 L Albumin 2.3 L 03/25/17 03/25/17 03/25/17 03:57 03:57 10:15 Creatine Kinase 42 L 50 L CK-MB (CK-2) 1.20 Troponin I < 0.012 03/25/17 10:15 Creatine Kinase CK-MB (CK-2) 1.00 Troponin I < 0.012 Impressions: Femur X-Ray 03/24/17 18:15 IMPRESSION: Fracture of the distal femur as described. Tibia/Fibula X-Ray 03/24/17 18:15 IMPRESSION: No acute fracture or radiopaque foreign body.No worrisome bone lesions. Chest X-Ray 03/24/17 18:27 IMPRESSION: NO ACUTE RADIOGRAPHIC FINDING IN THE CHEST. Assessment & Plan - Diagnosis (1) Gangrene of lower extremity Is this a current diagnosis for this admission?: Yes (2) Sepsis Qualifiers: Sepsis type: sepsis due to unspecified organism Qualified Code(s): A41.9 - Sepsis, unspecified organism Is this a current diagnosis for this admission?: Yes (3) Paraplegia Is this a current diagnosis for this admission?: Yes (4) Methadone maintenance therapy patient Is this a current diagnosis for this admission?: Yes
[2017-03-31] MEDS: GABAPENTIN 400 MG CAPSULE PO SCH ×3 (06:11→17:46)
[2017-03-31] MEDS: NORMAL SALINE 1000 ML 1,000 ML IV PRN (06:39)
[2017-03-31 06:51] LABS: ALANINE AMINOTRANSFERASE 32 U/L (21-72); ALBUMIN 2.2 g/dL (3.5-5.0); ALKALINE PHOSPHATASE 84 U/L (38-126); ANION GAP 14 (5-19); ASPARTATE AMINO TRANSFERASE 45 U/L (17-59); BILIRUBIN,DIRECT 0.4 mg/dL (0.0-0.4); BILIRUBIN,TOTAL 0.4 mg/dL (0.2-1.3); BLOOD UREA NITROGEN 36 mg/dL (7-20); CALCIUM 8.5 mg/dL (8.4-10.2); CARBON DIOXIDE 13 mmol/L (22-30); CHLORIDE 121 mmol/L (98-107); GLUCOSE 72 mg/dL (75-110); POTASSIUM 5.1 mmol/L (3.6-5.0); SODIUM 147.5 mmol/L (137-145); TOTAL PROTEIN 5.3 g/dL (6.3-8.2)
[2017-03-31] MEDS: METHADONE HCL 10 MG TABLET PO SCH (10:38)
[2017-03-31] MEDS: ENOXAPARIN SODIUM INJ 30 MG/0.3 ML DISP.SYRIN SUBCUT SCH (10:40)
[2017-03-31] MEDS: SULFAMETHOXAZOLE/TRIMETHOPRIM 800-160 MG TABLET PO SCH ×2 (10:40→17:46)
--- NOTE | 2017-03-31 10:43 | Operative Report ---
Operative Report DATE OF SURGERY: 03/25/17 PREOPERATIVE DIAGNOSIS: Left leg gangrene, fracture of the left distal femur POSTOPERATIVE DIAGNOSIS: Same OPERATION: Left [id number] amputation ANESTHESIA: GA TISSUE REMOVED OR ALTERED: Left leg COMPLICATIONS: None ESTIMATED BLOOD LOSS: 800 cc INTRAOPERATIVE FINDINGS: Distal femur fracture with muscular lacerations with necrosis of muscle belly in the medial thigh. PROCEDURE: Informed consent was obtained. Patient was brought to the operating room and placed on the operating table in supine position. After satisfactory induction of general anesthesia patient's left leg was prepped and draped in the usual sterile fashion. A fishmouth type incision was made at the patient's left thigh at what I felt was to be above the area of this fracture. Dissection was carried down. The left femoral artery was identified clamped divided and tied. Bony fragments and necrotic muscle with some surrounding fibrosis was identified with venous bleeding from multiple sources. The femoral vein was clamped divided and tied but I encountered a lot of bleeding around the femur fracture fragments embedded in muscle. The femur above the level of the fracture was exposed and the femur was divided. Remainder of the muscle and soft tissue was divided and the leg was passed off the table. The femoral nerve and was clamped and tied. Multiple venous oozing points were meticulously identified and controlled with clamping dividing and tying and electrocautery. The bleeding from the femur was controlled with bone wax. The remaining tissue appeared very healthy with no evidence of necrosis other than a muscle belly at the medial anterior thigh extending all the way up toward the groin. This necrotic muscle belly was completely excised. The cavity was irrigated using a pulse lavage. Maury-Brooks drain was placed into this cavity via a stab incision in the upper medial thigh and it was sutured in place. Hemostasis appeared excellent. The wound was then irrigated. The fascial edges were reapproximated using interrupted Vicryl sutures thus closing the muscle over the femur. Skin was closed with deep dermal interrupted Vicryl sutures followed by sanna. Patient tolerated procedure well with no apparent complications and was taken to the recovery area in stable condition.
[2017-03-31 17:35] LABS: VENOUS BLOOD HCO3 14.8 mmol/L (20-32); VENOUS BLOOD PCO2 41.1 mmHg (35-63)
[2017-03-31 17:38] LABS: VENOUS BLOOD PH 7.17 (7.30-7.42)
[2017-03-31 18:21] LABS: ALANINE AMINOTRANSFERASE 32 U/L (21-72); ALBUMIN 2.5 g/dL (3.5-5.0); ALKALINE PHOSPHATASE 93 U/L (38-126); ANION GAP 16 (5-19); ASPARTATE AMINO TRANSFERASE 52 U/L (17-59); BILIRUBIN,DIRECT 0.4 mg/dL (0.0-0.4); BILIRUBIN,TOTAL 0.4 mg/dL (0.2-1.3); BLOOD UREA NITROGEN 36 mg/dL (7-20); CALCIUM 8.5 mg/dL (8.4-10.2); CARBON DIOXIDE 14 mmol/L (22-30); CHLORIDE 120 mmol/L (98-107); CREATININE RESULT 5.54 mg/dL (0.52-1.25); GLUCOSE 80 mg/dL (75-110); POTASSIUM 4.6 mmol/L (3.6-5.0); SODIUM 149.5 mmol/L (137-145); TOTAL PROTEIN 6.2 g/dL (6.3-8.2)
--- NOTE | 2017-03-31 21:12 | PDOC PROGRESS REPORT ---
Subjective Progress Note for:: 04/07/17 Subjective:: Patient was seen by the bedside, he developed vancomycin associated ATN, it is nonoliguric acute kidney injury, it seems that he is developing acidosis , venous blood gas was done, the pH 7.1 I requested for arterial blood gas multiple times is not done yet. Patient is not uremic it does not look like he would need immediate hemodialysis at this time there is no nephrology stone polisher machine for the week, he has no hyperkalemia, serum potassium is normal. will continue to monitor very closely if he needs hemodialysis will transfer to a different hospital Physical Exam Vital Signs: Temp Pulse Resp BP Pulse Ox 98.7 F 74 18 126/86 H 100 03/31/17 16:21 03/31/17 16:21 03/31/17 16:21 03/31/17 16:21 03/31/17 16:21 Intake & Output 03/30/17 03/31/17 04/01/17 06:59 06:59 06:59 Intake Total 3728 3892 2905 Output Total 3059 3450 1600 Balance 844 102 5436 Weight 93.9 kg 94.4 kg General appearance: PRESENT: no acute distress, well-developed, well-nourished Head exam: PRESENT: atraumatic, normocephalic Eye exam: PRESENT: conjunctiva pink, EOMI, PERRLA Mouth exam: PRESENT: moist, tongue midline Neck exam: PRESENT: full ROM Respiratory exam: PRESENT: clear to auscultation magda Cardiovascular exam: PRESENT: RRR, +S1, +S2 Pulses: PRESENT: normal dorsalis pedis pul, +2 pedal pulses bilateral Vascular exam: PRESENT: normal capillary refill GI/Abdominal exam: PRESENT: normal bowel sounds, soft Rectal exam: PRESENT: deferred Neurological exam: PRESENT: alert Psychiatric exam: PRESENT: appropriate affect, normal mood Skin exam: PRESENT: dry, intact, warm Results Laboratory Results: 03/30/17 13:33 03/31/17 17:25 03/31/17 03/31/17 03/31/17 06:05 17:25 17:25 VBG pH 7.17 L* VBG pCO2 41.1 VBG HCO3 14.8 L VBG Base Excess -13.0 Sodium 147.5 H 149.5 H Potassium 5.1 H 4.6 Chloride 121 H 120 H Carbon Dioxide 13 L 14 L Anion Gap 14 16 BUN 36 H 36 H Creatinine 5.50 H 5.54 H Est GFR ( Amer) 14 L 14 L Est GFR (Non-Af Amer) 11 L 11 L Glucose 72 L 80 Calcium 8.5 8.5 Total Bilirubin 0.4 0.4 AST 45 52 ALT 32 32 Alkaline Phosphatase 84 93 Total Protein 5.3 L 6.2 L Albumin 2.2 L 2.5 L 03/25/17 03/25/17 03/25/17 03:57 03:57 10:15 Creatine Kinase 42 L 50 L CK-MB (CK-2) 1.20 Troponin I < 0.012 03/25/17 10:15 Creatine Kinase CK-MB (CK-2) 1.00 Troponin I < 0.012 Impressions: Femur X-Ray 03/24/17 18:15 IMPRESSION: Fracture of the distal femur as described. Tibia/Fibula X-Ray 03/24/17 18:15 IMPRESSION: No acute fracture or radiopaque foreign body.No worrisome bone lesions. Chest X-Ray 03/24/17 18:27 IMPRESSION: NO ACUTE RADIOGRAPHIC FINDING IN THE CHEST. Assessment & Plan - Diagnosis (1) Gangrene of lower extremity Is this a current diagnosis for this admission?: Yes (2) Sepsis Qualifiers: Sepsis type: sepsis due to unspecified organism Qualified Code(s): A41.9 - Sepsis, unspecified organism Is this a current diagnosis for this admission?: Yes (3) Paraplegia Is this a current diagnosis for this admission?: Yes (4) Methadone maintenance therapy patient Is this a current diagnosis for this admission?: Yes (5) Acute kidney injury Is this a current diagnosis for this admission?: Yes
[2017-03-31 21:30] LABS: ARTERIAL BLOOD BASE EXCESS -12.3 mmol/L; ARTERIAL BLOOD O2 SATURATION 94.6 % (94-98)
[2017-04-01] MEDS: GABAPENTIN 400 MG CAPSULE PO SCH ×5 (00:04→23:38)
[2017-04-01] MEDS: NORMAL SALINE 1000 ML 1,000 ML IV PRN ×3 (00:05→17:57)
[2017-04-01] MEDS: SULFAMETHOXAZOLE/TRIMETHOPRIM 800-160 MG TABLET PO SCH ×2 (10:46→17:56)
[2017-04-01] MEDS ORDERED: METHADONE HCL 10 MG TABLET PO ONE (11:00)
[2017-04-01 11:34] LABS: HEMATOCRIT 27.5 % (37.9-51.0); HGB HCT DIFFERENCE -0.5; MEAN CORPUSCULAR HEMOGLOBIN 29.2 pg (27.0-33.4); MEAN CORPUSCULAR HGB CONC 32.6 g/dL (32.0-36.0); MEAN CORPUSCULAR VOLUME 90 fl (80-97); RED BLOOD COUNT 3.07 10^6/uL (4.35-5.55); RED CELL DISTRIBUTION WIDTH 17.8 % (11.5-14.0); WHITE BLOOD COUNT 12.1 10^3/uL (4.0-10.5)
[2017-04-01 11:46] LABS: ALANINE AMINOTRANSFERASE 38 U/L (21-72); ALBUMIN 2.2 g/dL (3.5-5.0); ALKALINE PHOSPHATASE 94 U/L (38-126); ANION GAP 14 (5-19); ASPARTATE AMINO TRANSFERASE 52 U/L (17-59); BILIRUBIN,DIRECT 0.3 mg/dL (0.0-0.4); BILIRUBIN,TOTAL 0.3 mg/dL (0.2-1.3); BLOOD UREA NITROGEN 33 mg/dL (7-20); CALCIUM 8.3 mg/dL (8.4-10.2); CARBON DIOXIDE 12 mmol/L (22-30); CHLORIDE 122 mmol/L (98-107); CREATININE RESULT 5.38 mg/dL (0.52-1.25); GLUCOSE 98 mg/dL (75-110); POTASSIUM 4.8 mmol/L (3.6-5.0); SODIUM 147.6 mmol/L (137-145); TOTAL PROTEIN 5.6 g/dL (6.3-8.2)
[2017-04-01] MEDS: ENOXAPARIN SODIUM INJ 30 MG/0.3 ML DISP.SYRIN SUBCUT SCH (12:10)
--- NOTE | 2017-04-01 17:15 | PDOC PROGRESS REPORT ---
Subjective Progress Note for:: 04/01/17 Subjective:: He was seen by the bedside he has nonoliguric acute kidney injury with metabolic acidosis. We will continue present treatment Physical Exam Vital Signs: Temp Pulse Resp BP Pulse Ox 98.3 F 72 18 134/82 H 100 04/01/17 12:56 04/01/17 14:00 04/01/17 12:56 04/01/17 12:56 04/01/17 12:56 Intake & Output 03/31/17 04/01/17 04/02/17 06:59 06:59 06:59 Intake Total 3892 4305 679 Output Total 3450 1303 1500 Balance 802 -005 -392 Weight 94.4 kg 93.8 kg General appearance: PRESENT: no acute distress Eye exam: PRESENT: PERRLA Respiratory exam: PRESENT: clear to auscultation magda Cardiovascular exam: PRESENT: +S1, +S2 GI/Abdominal exam: PRESENT: soft Results Laboratory Results: 04/01/17 11:23 04/01/17 11:23 03/31/17 03/31/17 03/31/17 17:25 17:25 21:15 WBC RBC Hgb Hct MCV MCH MCHC RDW Plt Count Carbonic Acid 0.86 L HCO3/H2CO3 Ratio 15:1 ABG pH 7.28 L ABG pCO2 28.7 L ABG pO2 79.6 L ABG HCO3 13.2 L ABG O2 Saturation 94.6 ABG Base Excess -12.3 VBG pH 7.17 L* VBG pCO2 41.1 VBG HCO3 14.8 L VBG Base Excess -13.0 FiO2 ROOM AIR Sodium 149.5 H Potassium 4.6 Chloride 120 H Carbon Dioxide 14 L Anion Gap 16 BUN 36 H Creatinine 5.54 H Est GFR ( Amer) 14 L Est GFR (Non-Af Amer) 11 L Glucose 80 Calcium 8.5 Total Bilirubin 0.4 AST 52 ALT 32 Alkaline Phosphatase 93 Total Protein 6.2 L Albumin 2.5 L 04/01/17 04/01/17 11:23 11:23 WBC 12.1 H RBC 3.07 L Hgb 9.0 L Hct 27.5 L MCV 90 MCH 29.2 MCHC 32.6 RDW 17.8 H Plt Count 668 H Carbonic Acid HCO3/H2CO3 Ratio ABG pH ABG pCO2 ABG pO2 ABG HCO3 ABG O2 Saturation ABG Base Excess VBG pH VBG pCO2 VBG HCO3 VBG Base Excess FiO2 Sodium 147.6 H Potassium 4.8 Chloride 122 H Carbon Dioxide 12 L Anion Gap 14 BUN 33 H Creatinine 5.38 H Est GFR ( Amer) 14 L Est GFR (Non-Af Amer) 12 L Glucose 98 Calcium 8.3 L Total Bilirubin 0.3 AST 52 ALT 38 Alkaline Phosphatase 94 Total Protein 5.6 L Albumin 2.2 L 03/25/17 03/25/17 03/25/17 03:57 03:57 10:15 Creatine Kinase 42 L 50 L CK-MB (CK-2) 1.20 Troponin I < 0.012 03/25/17 10:15 Creatine Kinase CK-MB (CK-2) 1.00 Troponin I < 0.012 Impressions: Femur X-Ray 03/24/17 18:15 IMPRESSION: Fracture of the distal femur as described. Tibia/Fibula X-Ray 03/24/17 18:15 IMPRESSION: No acute fracture or radiopaque foreign body.No worrisome bone lesions. Chest X-Ray 03/24/17 18:27 IMPRESSION: NO ACUTE RADIOGRAPHIC FINDING IN THE CHEST. Assessment & Plan - Diagnosis (1) Gangrene of lower extremity Is this a current diagnosis for this admission?: Yes (2) Sepsis Qualifiers: Sepsis type: sepsis due to unspecified organism Qualified Code(s): A41.9 - Sepsis, unspecified organism Is this a current diagnosis for this admission?: Yes (3) Paraplegia Is this a current diagnosis for this admission?: Yes (4) Methadone maintenance therapy patient Is this a current diagnosis for this admission?: Yes (5) Acute kidney injury Is this a current diagnosis for this admission?: Yes (6) Metabolic acidosis Is this a current diagnosis for this admission?: Yes - Plan Summary Plan Summary: Continue IV hydration, continue other treatment
[2017-04-02] MEDS: NORMAL SALINE 1000 ML 1,000 ML IV PRN ×3 (01:31→20:28)
[2017-04-02] MEDS: GABAPENTIN 400 MG CAPSULE PO SCH ×3 (05:21→18:34)
[2017-04-02 05:51] LABS: HEMATOCRIT 28.2 % (37.9-51.0); HEMOGLOBIN 9.2 g/dL (13.5-17.0); HGB HCT DIFFERENCE -0.6; MEAN CORPUSCULAR HEMOGLOBIN 29.2 pg (27.0-33.4); MEAN CORPUSCULAR HGB CONC 32.5 g/dL (32.0-36.0); MEAN CORPUSCULAR VOLUME 90 fl (80-97); RED BLOOD COUNT 3.15 10^6/uL (4.35-5.55); RED CELL DISTRIBUTION WIDTH 18.1 % (11.5-14.0); WHITE BLOOD COUNT 12.6 10^3/uL (4.0-10.5)
[2017-04-02 06:15] LABS: ALANINE AMINOTRANSFERASE 43 U/L (21-72); ALBUMIN 2.6 g/dL (3.5-5.0); ALKALINE PHOSPHATASE 107 U/L (38-126); ANION GAP 14 (5-19); ASPARTATE AMINO TRANSFERASE 64 U/L (17-59); BILIRUBIN,DIRECT 0.4 mg/dL (0.0-0.4); BILIRUBIN,TOTAL 0.4 mg/dL (0.2-1.3); BLOOD UREA NITROGEN 32 mg/dL (7-20); CALCIUM 8.7 mg/dL (8.4-10.2); CARBON DIOXIDE 14 mmol/L (22-30); CHLORIDE 120 mmol/L (98-107); CREATININE RESULT 4.65 mg/dL (0.52-1.25); GLUCOSE 88 mg/dL (75-110); POTASSIUM 5.7 mmol/L (3.6-5.0); SODIUM 148.2 mmol/L (137-145); TOTAL PROTEIN 6.2 g/dL (6.3-8.2)
[2017-04-02] MEDS: SODIUM POLYSTYRENE SULFONATE 15 GM/60 ML PO SCH ×2 (08:50→13:19)
[2017-04-02] MEDS: SULFAMETHOXAZOLE/TRIMETHOPRIM 800-160 MG TABLET PO SCH ×2 (10:52→18:33)
[2017-04-02] MEDS: METHADONE HCL 10 MG TABLET PO SCH (10:53)
[2017-04-02] MEDS: ENOXAPARIN SODIUM INJ 30 MG/0.3 ML DISP.SYRIN SUBCUT SCH (10:59)
[2017-04-02 15:46] LABS: ALANINE AMINOTRANSFERASE 40 U/L (21-72); ALBUMIN 2.3 g/dL (3.5-5.0); ALKALINE PHOSPHATASE 101 U/L (38-126); ANION GAP 12 (5-19); ASPARTATE AMINO TRANSFERASE 57 U/L (17-59); BILIRUBIN,DIRECT 0.3 mg/dL (0.0-0.4); BILIRUBIN,TOTAL 0.3 mg/dL (0.2-1.3); BLOOD UREA NITROGEN 29 mg/dL (7-20); CALCIUM 8.4 mg/dL (8.4-10.2); CARBON DIOXIDE 15 mmol/L (22-30); CHLORIDE 120 mmol/L (98-107); CREATININE RESULT 4.43 mg/dL (0.52-1.25); GLUCOSE 93 mg/dL (75-110); POTASSIUM 5.3 mmol/L (3.6-5.0); SODIUM 146.9 mmol/L (137-145); TOTAL PROTEIN 5.7 g/dL (6.3-8.2)
--- NOTE | 2017-04-02 22:38 | PDOC PROGRESS REPORT ---
Subjective Progress Note for:: 04/02/17 Subjective:: Patient was seen by the bedside he developed nonoliguric acute kidney injury due to vancomycin ATN. Serum creatinine is improving it was 4.43 today there is no immediate need for hemodialysis patient kidney showing signs of recovery we will continue to monitor closely Physical Exam Vital Signs: Temp Pulse Resp BP Pulse Ox 98.7 F 81 16 136/80 H 100 04/02/17 15:44 04/02/17 15:44 04/02/17 15:44 04/02/17 15:44 04/02/17 15:44 Intake & Output 04/01/17 04/02/17 04/03/17 06:59 06:59 06:59 Intake Total 4305 5237 2638 Output Total 4590 4300 1100 Balance -792 573 9077 Weight 93.8 kg 93.5 kg General appearance: PRESENT: no acute distress Eye exam: PRESENT: PERRLA Respiratory exam: PRESENT: clear to auscultation magda Cardiovascular exam: PRESENT: +S1, +S2 GI/Abdominal exam: PRESENT: soft Neurological exam: PRESENT: alert, CN II-XII grossly intact Results Laboratory Results: 04/02/17 05:24 04/02/17 15:20 04/02/17 04/02/17 04/02/17 05:24 05:24 15:20 WBC 12.6 H RBC 3.15 L Hgb 9.2 L Hct 28.2 L MCV 90 MCH 29.2 MCHC 32.5 RDW 18.1 H Plt Count 671 H Sodium 148.2 H 146.9 H Potassium 5.7 H 5.3 H Chloride 120 H 120 H Carbon Dioxide 14 L 15 L Anion Gap 14 12 BUN 32 H 29 H Creatinine 4.65 H 4.43 H Est GFR ( Amer) 17 L 18 L Est GFR (Non-Af Amer) 14 L 15 L Glucose 88 93 Calcium 8.7 8.4 Total Bilirubin 0.4 0.3 AST 64 H 57 ALT 43 40 Alkaline Phosphatase 107 101 Total Protein 6.2 L 5.7 L Albumin 2.6 L 2.3 L 03/25/17 03/25/17 03/25/17 03:57 03:57 10:15 Creatine Kinase 42 L 50 L CK-MB (CK-2) 1.20 Troponin I < 0.012 03/25/17 10:15 Creatine Kinase CK-MB (CK-2) 1.00 Troponin I < 0.012 Impressions: Femur X-Ray 03/24/17 18:15 IMPRESSION: Fracture of the distal femur as described. Tibia/Fibula X-Ray 03/24/17 18:15 IMPRESSION: No acute fracture or radiopaque foreign body.No worrisome bone lesions. Chest X-Ray 03/24/17 18:27 IMPRESSION: NO ACUTE RADIOGRAPHIC FINDING IN THE CHEST. Assessment & Plan - Diagnosis (1) Gangrene of lower extremity Is this a current diagnosis for this admission?: Yes (2) Sepsis Qualifiers: Sepsis type: sepsis due to unspecified organism Qualified Code(s): A41.9 - Sepsis, unspecified organism Is this a current diagnosis for this admission?: Yes (3) Paraplegia Is this a current diagnosis for this admission?: Yes (4) Methadone maintenance therapy patient Is this a current diagnosis for this admission?: Yes (5) Acute kidney injury Is this a current diagnosis for this admission?: Yes (6) Metabolic acidosis Is this a current diagnosis for this admission?: Yes - Plan Summary Plan Summary: Continue present treatment
[2017-04-02 23:32] LABS: ALANINE AMINOTRANSFERASE 45 U/L (21-72); ALBUMIN 2.3 g/dL (3.5-5.0); ALKALINE PHOSPHATASE 97 U/L (38-126); ANION GAP 12 (5-19); ASPARTATE AMINO TRANSFERASE 59 U/L (17-59); BILIRUBIN,DIRECT 0.4 mg/dL (0.0-0.4); BILIRUBIN,TOTAL 0.4 mg/dL (0.2-1.3); BLOOD UREA NITROGEN 29 mg/dL (7-20); CALCIUM 8.4 mg/dL (8.4-10.2); CARBON DIOXIDE 15 mmol/L (22-30); CHLORIDE 118 mmol/L (98-107); CREATININE RESULT 4.15 mg/dL (0.52-1.25); GLUCOSE 90 mg/dL (75-110); POTASSIUM 5.1 mmol/L (3.6-5.0); SODIUM 145.1 mmol/L (137-145); TOTAL PROTEIN 5.6 g/dL (6.3-8.2)
[2017-04-03] MEDS: GABAPENTIN 400 MG CAPSULE PO SCH ×4 (00:03→18:04)
[2017-04-03 06:32] LABS: HEMATOCRIT 27.1 % (37.9-51.0); HEMOGLOBIN 8.9 g/dL (13.5-17.0); HGB HCT DIFFERENCE -0.4; MEAN CORPUSCULAR HEMOGLOBIN 29.4 pg (27.0-33.4); MEAN CORPUSCULAR HGB CONC 32.9 g/dL (32.0-36.0); MEAN CORPUSCULAR VOLUME 89 fl (80-97); RED BLOOD COUNT 3.04 10^6/uL (4.35-5.55); RED CELL DISTRIBUTION WIDTH 18.3 % (11.5-14.0); WHITE BLOOD COUNT 13.3 10^3/uL (4.0-10.5)
[2017-04-03] MEDS: NORMAL SALINE 1000 ML 1,000 ML IV PRN (06:35)
[2017-04-03 06:46] LABS: ALANINE AMINOTRANSFERASE 43 U/L (21-72); ALBUMIN 2.4 g/dL (3.5-5.0); ALKALINE PHOSPHATASE 103 U/L (38-126); ANION GAP 10 (5-19); ASPARTATE AMINO TRANSFERASE 61 U/L (17-59); BILIRUBIN,DIRECT 0.4 mg/dL (0.0-0.4); BILIRUBIN,TOTAL 0.4 mg/dL (0.2-1.3); BLOOD UREA NITROGEN 28 mg/dL (7-20); CALCIUM 8.6 mg/dL (8.4-10.2); CARBON DIOXIDE 15 mmol/L (22-30); CHLORIDE 121 mmol/L (98-107); CREATININE RESULT 4.05 mg/dL (0.52-1.25); GLUCOSE 75 mg/dL (75-110); POTASSIUM 5.5 mmol/L (3.6-5.0); SODIUM 146.4 mmol/L (137-145); TOTAL PROTEIN 5.8 g/dL (6.3-8.2)
[2017-04-03] MEDS: ENOXAPARIN SODIUM INJ 30 MG/0.3 ML DISP.SYRIN SUBCUT SCH (09:52)
[2017-04-03] MEDS: METHADONE HCL 10 MG TABLET PO SCH (09:57)
[2017-04-03] MEDS: SULFAMETHOXAZOLE/TRIMETHOPRIM 800-160 MG TABLET PO SCH ×2 (09:58→18:04)
[2017-04-03 14:02] LABS: ALANINE AMINOTRANSFERASE 38 U/L (21-72); ALBUMIN 2.2 g/dL (3.5-5.0); ALKALINE PHOSPHATASE 96 U/L (38-126); ANION GAP 12 (5-19); ASPARTATE AMINO TRANSFERASE 55 U/L (17-59); BILIRUBIN,DIRECT 0.4 mg/dL (0.0-0.4); BILIRUBIN,TOTAL 0.4 mg/dL (0.2-1.3); BLOOD UREA NITROGEN 27 mg/dL (7-20); CALCIUM 8.4 mg/dL (8.4-10.2); CARBON DIOXIDE 15 mmol/L (22-30); CHLORIDE 118 mmol/L (98-107); CREATININE RESULT 3.86 mg/dL (0.52-1.25); GLUCOSE 89 mg/dL (75-110); POTASSIUM 5.2 mmol/L (3.6-5.0); SODIUM 144.5 mmol/L (137-145); TOTAL PROTEIN 5.5 g/dL (6.3-8.2)
[2017-04-03 17:26] VITALS: BP 117/86
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
== END 2017-04-03 18:59 | disposition home or self-care (01) | DRG 853 ==
LOC: ER 15:44 → UNDOADMIN 20:36 → EH 20:36 → 3S 03-25 03:28
PROVIDERS: ADMIT Internal Medicine; ATTEND Internal Medicine
PROC: 30233N1 Transfusion of Nonautologous Red Blood Cells into Peripheral Vein, Percutaneous Approach (ICD-10-PCS; 2017-03-25)
PROC: 0Y6D0Z2 Detachment at Left Upper Leg, Mid, Open Approach (ICD-10-PCS; principal; 2017-03-31)
DX: A41.9 Sepsis, unspecified organism (principal); N17.0 Acute kidney failure with tubular necrosis; L89.153 Pressure ulcer of sacral region, stage 3; I96 Gangrene, not elsewhere classified; G82.20 Paraplegia, unspecified; L02.416 Cutaneous abscess of left lower limb; D62 Acute posthemorrhagic anemia; E87.2 Acidosis; T36.8X5A Adverse effect of other systemic antibiotics, initial encounter; B96.4 Proteus (mirabilis) (morganii) as the cause of diseases classified elsewhere; B96.20 Unspecified Escherichia coli [E. coli] as the cause of diseases classified elsewhere; B95.62 Methicillin resistant Staphylococcus aureus infection as the cause of diseases classified elsewhere; S72.402G Unspecified fracture of lower end of left femur, subsequent encounter for closed fracture with delayed healing; B96.5 Pseudomonas (aeruginosa) (mallei) (pseudomallei) as the cause of diseases classified elsewhere; X58.XXXD Exposure to other specified factors, subsequent encounter; S24.104S Unspecified injury at T11-T12 level of thoracic spinal cord, sequela; W34.00XS Accidental discharge from unspecified firearms or gun, sequela; Z93.3 Colostomy status; Z79.891 Long term (current) use of opiate analgesic; Z90.49 Acquired absence of other specified parts of digestive tract
CPT/HCPCS: 01232; 36415; 36430; 36600; 71010; 80048; 80053; 80061; 80076; 80202; 80307; 81001; 82140; 82150; 82550; 82553; 82565; 82803; 83036; 83605; 83690; 83735; 83880; 84100; 84439; 84443; 84484; 85025; 85027; 85610; 85730; 86850; 86900; 86901; 86920; 87040; 87070; 87075; 87077; 87086; 87088; 87186; 87205; 88307; 93005; 93010; 96365; 96367; 99291; G8978-GP; G8979-GP; J1650; J1940; J2250; J2270; J2405; J2543; J2704; J3010; J3370; J7030; J7060; P9016

== ENCOUNTER → 2017-05-18 | Outpatient (CLI) | payer MEDICARE, MEDICAID ==
--- NOTE | 2017-05-18 11:54 | RADIOLOGY REPORT (SQ) ---
EXAM DESCRIPTION: PELVIS AP COMPLETED DATE/TIME: 05/18/2017 11:39 am REASON FOR STUDY: PRESSURE ULCER OF SACRAL REGION, STAGE 4 L89.154 PRESSURE ULCER OF SACRAL REGION, STAGE 4 COMPARISON: None. NUMBER OF VIEWS: One view TECHNIQUE: AP Pelvis LIMITATIONS: None. FINDINGS: MINERALIZATION: Severe osteopenia. HIPS: Surgical changes right hip. Degenerative changes left hip. No fracture. PELVIS AND SACRUM: No acute fracture or dislocation. No worrisome bone lesions. PUBIS AND ISCHIUM: No acute fracture. LOWER LUMBAR SPINE: No significant findings as visualized. SOFT TISSUES: No findings. OTHER: No other significant finding. IMPRESSION: Severe osteopenia. No worrisome bone lesions. TECHNICAL DOCUMENTATION: JOB ID: [id number] [employer]- All Rights Reserved
[2017-05-18 12:13] LABS: ABSOLUTE BASOPHILS # (AUTO) 0.1 10^3/uL (0.0-0.2); ABSOLUTE EOSINOPHILS # (AUTO) 0.5 10^3/uL (0.0-0.6); ABSOLUTE LYMPHOCYTES (AUTO) 5.1 10^3/uL (0.5-4.7); ABSOLUTE MONOCYTES (AUTO) 0.9 10^3/uL (0.1-1.4); ABSOLUTE NEUT (AUTO) 6.3 10^3/uL (1.7-8.2); BASOPHILS % (AUTO) 0.7 % (0-2); EOSINOPHILS % (AUTO) 3.8 % (0-6); HEMATOCRIT 35.4 % (37.9-51.0); HEMOGLOBIN 11.6 g/dL (13.5-17.0); HGB HCT DIFFERENCE -0.6; LYMPHOCYTES % (AUTO) 39.5 % (13-45); MEAN CORPUSCULAR HEMOGLOBIN 30.1 pg (27.0-33.4); MEAN CORPUSCULAR HGB CONC 32.7 g/dL (32.0-36.0); MEAN CORPUSCULAR VOLUME 92 fl (80-97); RED BLOOD COUNT 3.84 10^6/uL (4.35-5.55); RED CELL DISTRIBUTION WIDTH 16.4 % (11.5-14.0); WHITE BLOOD COUNT 12.9 10^3/uL (4.0-10.5)
[2017-05-18 12:46] LABS: ALANINE AMINOTRANSFERASE 57 U/L (21-72); ALBUMIN 3.8 g/dL (3.5-5.0); ALKALINE PHOSPHATASE 322 U/L (38-126); ANION GAP 15 (5-19); ASPARTATE AMINO TRANSFERASE 97 U/L (17-59); BILIRUBIN,DIRECT 0.5 mg/dL (0.0-0.4); BILIRUBIN,TOTAL 0.6 mg/dL (0.2-1.3); BLOOD UREA NITROGEN 9 mg/dL (7-20); C-REACTIVE PROTEIN 14.3 mg/L (<10.0); CALCIUM 9.4 mg/dL (8.4-10.2); CARBON DIOXIDE 23 mmol/L (22-30); CHLORIDE 104 mmol/L (98-107); CREATININE RESULT 0.64 mg/dL (0.52-1.25); GLUCOSE 90 mg/dL (75-110); POTASSIUM 4.3 mmol/L (3.6-5.0); SODIUM 142.1 mmol/L (137-145); TOTAL PROTEIN 7.7 g/dL (6.3-8.2)
[2017-05-18 13:02] LABS: ERYTHROCYTE SEDIMENTATION RATE 51 mm/hr (0-15)
== END ==
LOC: WC 10:41
PROVIDERS: ATTEND Surgery
DX: L89.154 Pressure ulcer of sacral region, stage 4 (principal); M85.88 Other specified disorders of bone density and structure, other site
CPT/HCPCS: 36415; 72170; 80053; 85025; 85652; 86140

== ENCOUNTER → 2017-06-04 | Outpatient (CLI) | payer MEDICAID, MEDICARE ==
[2017-06-04 11:47] LABS: ABSOLUTE EOSINOPHILS # (AUTO) 0.4 10^3/uL (0.0-0.6); ABSOLUTE LYMPHOCYTES (AUTO) 6.2 10^3/uL (0.5-4.7); ABSOLUTE MONOCYTES (AUTO) 1.1 10^3/uL (0.1-1.4); ABSOLUTE NEUT (AUTO) 5.9 10^3/uL (1.7-8.2); BASOPHILS % (AUTO) 0.3 % (0-2); EOSINOPHILS % (AUTO) 2.8 % (0-6); HEMATOCRIT 33.8 % (37.9-51.0); HEMOGLOBIN 11.3 g/dL (13.5-17.0); HGB HCT DIFFERENCE 0.1; LYMPHOCYTES % (AUTO) 45.5 % (13-45); MEAN CORPUSCULAR HEMOGLOBIN 30.8 pg (27.0-33.4); MEAN CORPUSCULAR HGB CONC 33.4 g/dL (32.0-36.0); MEAN CORPUSCULAR VOLUME 92 fl (80-97); MONOCYTES % (AUTO) 7.8 % (3-13); RED BLOOD COUNT 3.65 10^6/uL (4.35-5.55); RED CELL DISTRIBUTION WIDTH 16.4 % (11.5-14.0); SEGMENTED NEUTROPHILS % (AUTO) 43.6 % (42-78); WHITE BLOOD COUNT 13.6 10^3/uL (4.0-10.5)
[2017-06-04 12:18] LABS: ALANINE AMINOTRANSFERASE 61 U/L (21-72); ALBUMIN 3.7 g/dL (3.5-5.0); ALKALINE PHOSPHATASE 240 U/L (38-126); ANION GAP 13 (5-19); ASPARTATE AMINO TRANSFERASE 85 U/L (17-59); BILIRUBIN,DIRECT 0.2 mg/dL (0.0-0.4); BILIRUBIN,TOTAL 0.4 mg/dL (0.2-1.3); BLOOD UREA NITROGEN 11 mg/dL (7-20); CALCIUM 9.8 mg/dL (8.4-10.2); CARBON DIOXIDE 22 mmol/L (22-30); CHLORIDE 108 mmol/L (98-107); CREATININE RESULT 0.62 mg/dL (0.52-1.25); GLUCOSE 95 mg/dL (75-110); POTASSIUM 4.4 mmol/L (3.6-5.0); SODIUM 143.2 mmol/L (137-145); TOTAL PROTEIN 7.1 g/dL (6.3-8.2)
[2017-06-04 12:25] LABS: ERYTHROCYTE SEDIMENTATION RATE 27 mm/hr (0-15)
--- NOTE | 2017-06-04 13:12 | RADIOLOGY REPORT (SQ) ---
EXAM DESCRIPTION: CT PELVIS WITH COMPLETED DATE/TIME: 06/04/2017 11:21 am REASON FOR STUDY: PELVIC PAIN L89.154 PRESSURE ULCER OF [place]CRAL REGION, STAGE 4 R10.2 PELVIC AND PE RINEAL PAIN COMPARISON: CT abdomen pelvis 11/01/2014 TECHNIQUE: CT scan of the pelvis performed with intravenous contrast. Patient was injected with 100 mL of Isovue 370. Creatinine 0.64. No oral contrast Images reviewed with soft tissue and bone windows. Reconstructed coronal and sagittal MPR images rev iewed. All images stored on PACS. All CT scanners at this facility use dose modulation, iterative reconstruction, and/or weight based d osing when appropriate to reduce radiation dose to as low as reasonably achievable (ALARA). [facility]: Dose Right [facility]: CareDose [facility]: Dose Right [facility]: Teradose 4D [facility]: Smart FanTree RADIATION DOSE: CT Rad equipment meets quality standard of care and radiation dose reduction techniq ues were employed. CTDIvol: 17.0 - 18.6 mGy. DLP: 1262 mGy-cm. mGy. LIMITATIONS: None. FINDINGS: A 2.6 x 2.6 cm sacral midline decubitus ulcer is presents at the level of the sacrococcyge al junction. Few air bubbles are seen in the ulcer which extends from skin down to the bone. No agg ressive bony demineralization worrisome for osteomyelitis. PELVIC BONES: Osteopenic. Old healed right proximal femoral intertrochanteric fracture with hardware VISUALIZED SPINE: Bilateral L5 spondylolysis with grade 1 listhesis PELVIC SOFT TISSUES: No significant findings. Moderate stool throughout the colon. Right lower quad rant colostomy. 2.2 cm right lower pole renal cortical cyst. EXTRAPELVIC SOFT TISSUES: Sacral decubitus as above OTHER: No other significant finding. IMPRESSION: Small sacral decubitus ulcer from the skin down to bone. No aggressive bony demineraliz ation worrisome for osteomyelitis TECHNICAL DOCUMENTATION: JOB ID: [id number] Quality ID # [id number]: Final reports with documentation of one or more dose reduction techniques (e.g., Au tomated exposure control, adjustment of the mA and/or kV according to patient size, use of iterative reconstruction technique) 2010 [employer]- All Rights Reserved
== END ==
LOC: RAD 10:06
PROVIDERS: ATTEND Surgery
DX: L89.154 Pressure ulcer of sacral region, stage 4 (principal); R10.2 Pelvic and perineal pain
CPT/HCPCS: 36415; 72193; 80053; 85025; 85652; 86140

== ENCOUNTER 2017-10-06 08:43 | Day surgery (SDC) | payer MEDICARE, MEDICAID ==
[2017-10-01 11:14] LABS: HEMATOCRIT 33.2 % (37.9-51.0); HEMOGLOBIN 10.7 g/dL (13.5-17.0); MEAN CORPUSCULAR HEMOGLOBIN 28.6 pg (27.0-33.4); MEAN CORPUSCULAR HGB CONC 32.3 g/dL (32.0-36.0); MEAN CORPUSCULAR VOLUME 89 fl (80-97); PLATELET COUNT 649 10^3/uL (150-450); RED BLOOD COUNT 3.74 10^6/uL (4.35-5.55); RED CELL DISTRIBUTION WIDTH 15.9 % (11.5-14.0)
[2017-10-01 11:35] LABS: ANION GAP 15 (5-19); BLOOD UREA NITROGEN 13 mg/dL (7-20); CALCIUM 9.5 mg/dL (8.4-10.2); CARBON DIOXIDE 21 mmol/L (22-30); CHLORIDE 105 mmol/L (98-107); GLUCOSE 105 mg/dL (75-110); POTASSIUM 4.4 mmol/L (3.6-5.0); SODIUM 141.1 mmol/L (137-145)
[~2017-10-06 08:43] MED LIST: BACITRACIN INJ 50,000 UNIT VIAL ONE; BUPIVACAINE HCL 0.25 % INJ/PF (2.5 MG/1 ML) 30 ML VIAL ONE; COLLAGENASE CLOSTRIDIUM HIST. OINT 30 GM ONE; LIDOCAINE 0.5% INJ-PF (5 MG/ML) 50 ML SDV ONE; SILVER SULFADIAZINE 1% CREAM 25 GM ONE
[2017-10-06] MEDS ORDERED: FENTANYL CITRATE INJ/PF 250 MCG/5 ML AMPULE ONE (09:44)
[2017-10-06] MEDS ORDERED: MIDAZOLAM 2 MG/2 ML INJ ONE (09:44)
[2017-10-06] MEDS ORDERED: LIDOCAINE 2% INJ-PF (20 MG/ML) 10 ML AMPUL ONE (09:44)
[2017-10-06] MEDS ORDERED: EPHEDRINE SULFATE INJ 50 MG/1 ML AMPULE ONE (09:44)
[2017-10-06] MEDS ORDERED: PROPOFOL INJ 200 MG/20 ML VIAL IV ONE ×2 (09:45→09:47)
[2017-10-06] MEDS ORDERED: ONDANSETRON HCL INJ/PF 4 MG/2 ML SDV ONE (09:45)
[2017-10-06] MEDS ORDERED: DEXMEDETOMIDINE INJ 80 MCG/20 ML VIAL IV ONE (09:47)
[2017-10-06] MEDS ORDERED: ALBUTEROL SULFATE 0.083% NEB 2.5 MG/3 ML AMPUL NEB ONE (09:49)
--- NOTE | 2017-10-06 11:23 | Discharge Summary ---
Discharge Summary (SDC) - Discharge Final Diagnosis: #1 stage IV sacral decubitus ulcer. 2. Paraplegia 3. Chronic pain syndrome. Date of Surgery: 10/06/17 Discharge Date: 10/06/17 Condition: Poor Treatment or Instructions: Discharge home [after recovery per ASU criteria]. Diet,as tolerated, when fully awake advance as tolerated. Activities within moderation encouraged. Follow up in wound clinic by appointment on Thursday of this week. Call for appointment. Leave wounds [covered], [keep clean and dry, until office visit in 1 week]. Hold of on school/work [until evaluation in office]. Meds per med rec. May shower [in 48 hrs], [try to keep operated area as dry as possible]. Referrals: LENARD WEEKS MD [Primary Care Provider] - Discharge Diet: As Tolerated Respiratory Treatments at Home: Deep Breathing/Coughing Discharge Activity: Activity As Tolerated
--- NOTE | 2017-10-06 11:27 | Operative Report ---
Operative Report DATE OF SURGERY: 10/06/17 PREOPERATIVE DIAGNOSIS: #1 stage IV sacral decubitus ulcer. 2. Paraplegia. 3. Chronic pain syndrome. POSTOPERATIVE DIAGNOSIS: #1 stage IV sacral decubitus ulcer. 2. Paraplegia. 3. Chronic pain syndrome. OPERATION: Debridement of stage IV sacral decubitus ulcer. Sharp, surgical, excisional. Including subcutaneous tissue. SURGEON: DIAN LISA DATA INPUT CLERK: BULL SANCHEZ ANESTHESIA: LMAC TISSUE REMOVED OR ALTERED: Nonviable skin and subcutaneous tissue. COMPLICATIONS: None. ESTIMATED BLOOD LOSS: 10 mL. INTRAOPERATIVE FINDINGS: Of a sacral decubitus ulcer approximately 5 x 5 x 3 cm deep. Almost covered with a thick rind of nonviable and heavily scarred tissue. An opening about 1 cm across remained. Debridement was done to include skin and subcutaneous tissue. Postprocedure the opening is nicely revealed with an opening about 4 cm across. PROCEDURE: PROCEDURE: The [left foot ]was prepared with [Betadine] and draped out with sterile linen. After the"universal time-out", in which it was confirmed that the patient [did receive antibiotic], the procedure commenced. The patient was appropriately anesthetized. The wound was probed. The wound was debrided of non viable tissue using cautery and scalpel, with removal of loose debris, as well. A thick layer of heavily scarred and partially nonviable tissue was removed circumferentially for about 4 cm diameter. The wound was irrigated with [Peroxide] . Patient hemostasis was secured using cautery.The wound was now irrigated with saline and [Surgicel] placed within it, dressed with [Kerlix] and the procedure concluded. The airplane first officer provided retraction, thus facilitating the operative view. Controlled bleeding. The airplane first officer also followed the suturing, thus facilitating accurate suture placement. Sutured skin and applied dressings.
[2017-10-06] MEDS ORDERED: ONDANSETRON HCL INJ/PF 4 MG/2 ML SDV IV PRN (11:37)
[2017-10-06] MEDS ORDERED: MEPERIDINE HCL/PF INJ 25 MG/1 ML DISP.SYRIN IV PRN (11:37)
[2017-10-06] MEDS ORDERED: OXYCODONE-ACETAMINOPHEN 5-325 MG TABLET PO PRN ×2 (11:37)
[2017-10-06] MEDS ORDERED: MORPHINE SULFATE 10 MG/ML INJ IV PRN (11:37)
[2017-10-06] MEDS ORDERED: DIPHENHYDRAMINE HCL 50 MG/ML VIAL IV PRN (11:37)
[2017-10-06] MEDS ORDERED: PROMETHAZINE HCL INJ 25 MG/1 ML VIAL IV PRN ×2 (11:37)
[2017-10-06] MEDS ORDERED: FENTANYL CITRATE INJ/PF 100 MCG/2 ML AMPUL IV PRN ×3 (11:37)
[2017-10-06] MEDS ORDERED: FENTANYL CITRATE INJ/PF 100 MCG/2 ML AMPUL ONE (11:39)
[2017-10-06] MEDS ORDERED: OXYCODONE-ACETAMINOPHEN 5-325 MG TABLET ONE (11:57)
[2017-10-06 14:27] VITALS: BP 113/70
== END 2017-10-06 13:45 | disposition home or self-care (01) ==
LOC: OROUT 08:43
PROVIDERS: ATTEND Surgery
PROC: 0JB70ZZ Excision of Back Subcutaneous Tissue and Fascia, Open Approach (ICD-10-PCS; principal; 2017-10-06 11:30)
DX: L89.154 Pressure ulcer of sacral region, stage 4 (principal); D64.9 Anemia, unspecified; F17.210 Nicotine dependence, cigarettes, uncomplicated; G82.20 Paraplegia, unspecified; G89.4 Chronic pain syndrome
CPT/HCPCS: 36415; 85027; 80048; 88304 ×2; 94640; 11042; J2250; J3490 ×4; J3010 ×2; A9270 ×2; J2704; 902; J2405